=== PATIENT | female | born 1940 | race Caucasian/White ===

== ENCOUNTER 2023-04-30 11:27 | Day surgery (SDC) | payer MEDICARE, SELFPAY ==
[2023-04-22 08:54] VITALS: BMI 28.1
[2023-04-30] VITALS (11 sets, daily range): BP systolic 97–119; BP diastolic 44–63; PULSE 15–85; RESP 10–16; TEMP 36.1–37.5; O2SAT 93–96; BMI 28.1
--- NOTE | 2023-04-30 | DI.RAD.S_ITS ---
PROCEDURE: XR HIP W PEL IF DONE RT 2V INDICATIONS: RIGHT ANTERIOR HIP TECHNIQUE: 2 view(s) of the hip acquired. COMPARISON: [facility], ABHISHEK, XR HIP W PEL IF DONE RT 2V, 04/30/2023, 16:43. FINDINGS: Bones: Patient is status post right hip arthroplasty, with hardware components in expected positions. The hip joint appears congruent. The visualized bony structures appear intact. Soft tissues: Overlying postoperative changes are noted. No suspicious soft tissue densities. IMPRESSION: Expected post-operative appearance of a hip arthroplasty. Dictated by: Dafne Palmer M.D. on 04/30/2023 at 20:27 Approved by: Dafne Palmer M.D. on 04/30/2023 at 20:28
--- NOTE | 2023-04-30 06:00 | DI.RAD.S_ITS ---
PROCEDURE: XR HIP W PEL IF DONE RT 2V INDICATIONS: VERONICA TECHNIQUE: Fluoroscopic images obtained for a right total hip arthroplasty placement. COMPARISON: None. FINDINGS: Fluoroscopic images demonstrate normal alignment of a right total hip arthroplasty. IMPRESSION: Fluoroscopic guidance utilized for a right hip arthroplasty. Dictated by: Emilio Ann M.D. on 05/01/2023 at 0:25 Approved by: Emilio Ann M.D. on 05/01/2023 at 0:26
[2023-04-30] MEDS: CELECOXIB 200 MG CAPSULE PO (12:20)
[2023-04-30] MEDS: ACETAMINOPHEN 325 MG TABLET 975 MG PO (12:20)
[2023-04-30] MEDS: LACTATED RINGERS 1,000 ML 42 ML IV (12:20)
[2023-04-30] MEDS: VANCOMYCIN 1,000 MG/200 ML PIGGYBACK 200 MG IV (13:42)
--- NOTE | 2023-04-30 15:05 | PM.OP.1 ---
Operative Date/Time/Diagnoses Date of procedure: 04/30/23 Time of procedure: 15:20 Pre-op diagnosis: right hip OA Post-op diagnosis: same Procedure & Clinicians Procedure: Right total hip arthroplasty anterior approach Same procedure as scheduled: Yes Indications: The patient has had progressively worsening right hip pain with radiographic changes consistent with arthritis. Non-operative management has failed and the patient has requested total hip replacement. The risks, benefits and alternatives to surgery were discussed with the patient prior to proceeding. Risks discussed included, but were not limited to, failure to relieve pain, leg length discrepancy, dislocation, stiffness, infection, nerve damage, deep venous thrombosis, pulmonary embolism, stroke, coma, heart attack, permanent paralysis and , as well as the potential need for eventual revision of the prosthetic. Surgeon: Betty Badillo Child Welfare Specialist: Joan Navas Anesthesia Type: General Operative Notes Findings: Severe right hip osteoarthritis, substantial hip flexion contracture, soft bone, adequate stability Closure Type: primary Specimen(s): none sent Prosthetic devices, grafts, tissues, transplants, or devices: Badillo and nephew R3 size 48 cup, neutral poly liner, one 6.5 mm screw, size 2 polar stem, 32 x -3 CoCr head Estimated Blood Loss (mL): 250 Blood products transfused: none Procedure in detail: The patient was brought to the operating room. Patient was carefully positioned in the supine position. Time-out was performed and antibiotics were given. Anesthesia was induced. She was positioned in the on the table in order to allow hyperextension of the hip. The right lower extremity was prepped and draped in a standard sterile fashion. An anterior right hip incision was made 1 fingerbreadth lateral to the anterior superior iliac spine and extended distally towards the greater trochanter. Dissection was carried out through skin and subcutaneous tissues. Superficial hemostasis was achieved. The fascia over the tensor fascia merrill was defined and incised with a knife. Two Allis clamps were used to grasp the fascia. Tensor fascia merrill was retracted laterally. A gelpi retractor was placed. Dissection was carried out down along the neck. The circumflex vessels were carefully identified and cauterized with the Aqua Mantis. A PA was used intraoperatively and was essential for intraoperative retraction and safe implantation of the components. They were also helpful in assisting visualization to improve hemostasis. There was good visualization of the femoral neck. A Cobra was placed superior to the neck and the gluteus fibers were carefully stripped from that superior aspect of the capsule. A 2nd retractor was placed along the inferior aspect of the neck. The rectus insertion along the capsule was partially released. A 3rd retractor that was then gently placed over the rim of the acetabulum under the rectus. Capsule was carefully incised and released from the intertrochanteric line circumferentially superior to the mid sagittal line and inferiorly to the mid sagittal line until the lesser trochanter was palpable. A tag stitch was placed both in the superior and inferior limb of the capsular insertion. Along the acetabulum capsule was also released up to the mid sagittal 12:00 position. A portion of the labrum was resected. A saw was used to perform an osteotomy at the level of the intertrochanteric line and the junction of the superior femoral neck leaving approximately 1 finger breath of residual inferior neck above the lesser trochanter. A 2nd cut was made along the femoral neck at the base of the head and a napkin ring of neck was removed. Corkscrew was placed in the femoral head and the head was removed without difficulty. Retractors were then repositioned around the acetabulum. Residual labrum was resected and additional osteophytes were removed. She had a significant hip flexion contracture and substantial adhesions and fairly severe scarring throughout her capsule. There was significant shortening of the right femur. Mobilization of the femur and acetabulum both were quite difficult secondary to severe scarring and contracture. Specifically released substantial amount of the anterior capsule in order to free and help minimize the hip preoperative hip flexion contracture. A reamer that was 4 mm below the templated size was placed by hand in the acetabulum and it was reamed to centralize the acetabulum. It was then reamed up to 2 under the templated size and fluoroscopy was brought in to confirm the position of the reaming and depth of reaming. I reamed 1 under the anticipated size. A trial cup was placed and noted that it was appropriately sized and fluoroscopy confirmed position and depth. The component was open and inserted without difficulty fluoroscopic imaging was used to confirm that the cup had been adequately seated and was well positioned. It was further stabilized with 2 screws. She had a fairly soft acetabulum but adequate stability was achieved. Neutral poly liner was placed. The cup was tested and noted to be stable. Attention was then directed to the femur. The femur was gently hyperextended additional capsular release was performed as needed in order to allow adequate visualization of the proximal femur with elevation of the femur. Patient was placed in a hyperextended slightly adducted position with maximum external rotation. Box osteotome was used to check for any residual neck as well as sclerotic bone along the trochanter. [place] pepper was placed in the femur. Additional broaching was performed. Canal finder was used to determine the alignment of the canal and position. Size 1 broach was placed. The canal was then appropriately broached up to the templated size as long as there was adequate stability of the broach and serial advancement of the broach without excessive impingement. Specific attention was directed at avoiding varus attempting to direct the distal aspect of the broach more anteriorly and avoiding excessive anteversion. Initial trial reduction was noted that she was too tight. I then brought her back up tamped down the femoral component additional 3-4 mm and trimmed additional neck. It is a little too tight for calcar reaming so I did an additional 3 mm neck osteotomy. I also went up 1 size on the broach after looking at the initial films. Trial reduction showed acceptable range of motion, good stability, no posterior impingement, buddhism of leg length and appropriate lateral shuck. I also hyperflexed the hip and checked that there was no impingement anteriorly and there was good stability with flexion, adduction and internal rotation. Marcaine and Exparel were injected. The stem was placed without difficulty. Repeat trial reduction and x-ray showed acceptable overall position, length, and no evidence of the femoral fracture. Final head was placed. Wound was meticulously irrigated with normal saline. The hip was reduced and additional Exparel and Marcaine were injected. The capsule was closed with interrupted nonabsorbable sutures. The fascia of the tensor was closed with interrupted and running Vicryl. No drain was placed. Any tensor fascia merrill muscle that appeared to be contused or injured which was a minimal amount was carefully resected. Capsule around the tensor was injected with Exparel and Marcaine. The skin was closed with barbed stitches for the subcutaneous tissue and skin. We also used a few staplers and used used surgical glue. The wound was dressed sterilely. Brief Betadine soak was also used and was meticulously irrigated with normal saline. Patient was transferred to recovery room in satisfactory condition. Complications: none Post-operative Condition: stable Disposition: Acute Care Plan for aftercare: The patient will be maintained on a standard total hip replacement protocol with weight bearing as tolerated and anterior hip precautions. The patient will receive Aspirin and sequential compression devices for DVT prophylaxis. The patient will be discharged home when safe for the home environment.
[2023-04-30] MEDS: CEFAZOLIN 2 GM/100 ML PREMIX 100 ML IV ×2 (15:30→21:12)
[2023-04-30] MEDS: TRANEXAMIC ACID 1,000 MG VIAL 1000 MG INJ (15:30)
--- NOTE | 2023-04-30 15:55 | SUR.OPER ---
Patient supine on padded [place] table, left arm on padded arm board at <90, right arm padded and secured with tape across patient's chest, both legs secured in padded traction boots and positioned per surgeon, padded post at patient's groin, pressure points checked and padded.
[2023-04-30] MEDS: BUPIVACAINE 0.25% (PF) 60 ML, EPINEPHrine 0.3 MG INJ (16:10)
[2023-04-30] MEDS: BUPIVACAINE LIPOSOME 266 MG/20 ML VIAL INJ (16:11)
[2023-04-30] MEDS: LACTATED RINGERS 1,000 ML 100 ML IV (20:04)
[2023-04-30] MEDS: DOCUSATE 100 MG CAPSULE PO (21:14)
[2023-04-30] MEDS: METFORMIN HCL 500 MG TABLET PO (21:14)
[2023-04-30] MEDS: IBUPROFEN 400 MG TABLET PO (21:14)
[2023-04-30] MEDS: ACETAMINOPHEN 325 MG TABLET 650 MG PO (21:16)
[2023-04-30] MEDS: ASPIRIN EC 81 MG TABLET PO (21:16)
[2023-04-30] MEDS: ATORVASTATIN 20 MG TABLET PO (21:16)
[2023-05-01] VITALS: BP 109/61; PULSE 78; RESP 16; TEMP 36; O2SAT 92
[2023-05-01 04:00] VITALS: BP 92/43; PULSE 78; RESP 17; TEMP 36.2; O2SAT 92
[2023-05-01 06:15] LABS: Hematocrit 26.4 % (36-46); Hemoglobin 9.1 g/dL (12.0-16.0)
[2023-05-01] MEDS: PANTOPRAZOLE DR 20 MG TABLET PO (07:00)
[2023-05-01] MEDS: IBUPROFEN 400 MG TABLET PO ×2 (07:02→12:44)
[2023-05-01] MEDS: ACETAMINOPHEN 325 MG TABLET 650 MG PO ×2 (07:02→12:43)
[2023-05-01] MEDS: CEFAZOLIN 2 GM/100 ML PREMIX 100 ML IV (07:02)
--- NOTE | 2023-05-01 07:31 | P.DS_ITS ---
History of Present Illness History of Present Illness Chief complaint: OPB Narrative: Lupe is a pleasant 83 year old female who is POD #1 s/p right total hip arthroplasty anterior approach by Dr. Badillo. She states overall she is feeling well. Mild pain only. Has not gotten up out of bed to pee or walk yet. Nurse states patient has been asleep for most of her hospital stay so far. Patient normally lives alone but plans on staying with her sister after d/c from the hospital so she has 24 hour support during the immediate post-op period. Sister has prepped the house for patient to stay, no rugs, grab bars, walker, etc. Denies fever, chills, chest pain, SOB, nausea, vomiting. Operative Date/Time/Diagnoses Date of procedure: 04/30/23 Time of procedure: 15:20 Pre-op diagnosis: right hip OA Post-op diagnosis: same Procedure & Clinicians Procedure: Right total hip arthroplasty anterior approach Same procedure as scheduled: Yes Indications: The patient has had progressively worsening right hip pain with radiographic changes consistent with arthritis. Non-operative management has failed and the patient has requested total hip replacement. The risks, benefits and alternatives to surgery were discussed with the patient prior to proceeding. Risks discussed included, but were not limited to, failure to relieve pain, leg length discrepancy, dislocation, stiffness, infection, nerve damage, deep venous thrombosis, pulmonary embolism, stroke, coma, heart attack, permanent paralysis and , as well as the potential need for eventual revision of the prosthetic. Surgeon: Betty Badillo Stop Attacher: Joan Navas Anesthesia Type: General Discharge Providers Provider Discharge Date: 05/01/23 Primary care physician: Leydi Guaman PA-C Consults: 04/30/23 06:00 Consult to Anesthesiology Routine Comment: Consulting Provider: Anesthesiologist Reason for consultation: Regional block for post operative pain control 04/30/23 19:32 Consult to Discharge Planning Routine Comment: Consult to Occupational Therapy Evaluate & Treat Comment: Physician Instructions: Evaluate and treat Consult to Physical Therapy Evaluate & Treat Comment: Physician Instructions: post op VERONICA protocol Discharge provider: Joan Navas PA-C Summary Hospital Course Discharge Diagnosis: Right hip OA s/p Right total hip arthroplasty anterior approach Hospital Course: Hospital course complicated by lack of mobility at this time, will work with PT prior to d/c Exam Vital Signs (past 8 hours): - 05/01/23 00:00 05/01/23 04:00 Temperature 96.8 F L 97.1 F L Pulse Rate 78 78 Respiratory Rate 16 17 Blood Pressure 109/61 92/43 L Pulse Oximetry 92 92 Oxygen Flow Rate 2 2 Oxygen Delivery Method Room Air Oxygen Flow Rate 2 Const General: cooperative, healthy appearing and comfortable Resp Effort & Inspection: normal respiratory effort and able to speak in complete sentences Skin Other: Clean and dry Aquacel dressing intact to patients right anterior hip. Small bruise distal to the incision site. Neuro General: patient oriented x3 Extrem Other: 5/5 strength with DF, PF, EHL. Spencer flexion and extension with mild pain. Sensation intact to all toes Calves soft and non-tender. Objective Labs 05/01/23 05:10 Labs: Laboratory Results - last 24 hr 05/01/23 05:10 Hgb 9.1 L Hct 26.4 L PFSH Medical History (Updated 04/22/23 @ 09:13 by Orly Hernandez RN) Osteoarthritis Diabetes Incontinence GERD (gastroesophageal reflux disease) Esophageal dilatation HLD (hyperlipidemia) HTN (hypertension) Surgical History (Updated 04/22/23 @ 09:13 by Orly Hernandez RN) Hx of appendectomy Hx of bilateral cataract extraction Social History household members: none Smoking Status: Former smoker alcohol intake: current Discharge Assessment & Plan Assessment and Plan Assessment: Right hip OA s/p Right total hip arthroplasty anterior approach Plan of Treatment: Okay to d/c to home today pending PT evaluation and patient being able to urinate on her own. The patient will be maintained on a standard total hip replacement protocol with weight bearing as tolerated and anterior hip precautions. Continue multimodal pain management, continue ASA BID for DVT prophylaxis Follow up at [facility] in 2 weeks for post-op appointment. Keep dressing intact until 2 weeks appointment. keep dressing clean and dry, no soaking the incision site in pools or tubs. NO topical ointments or creams to the incision site. Discharge Plan Discharge Plan Patient Disposition: Home Provider Discharge Comment: Follow up at [facility] in 2 weeks Discharge orders & Medications Discharge Orders: Discharge (Order); Ordered 05/01/23 Ordered By: Joan Navas Prescriptions: New acetaminophen 325 mg Tablet 650 mg PO Q6H Qty: 90 0RF aspirin 81 mg Tablet,Delayed Release (Dr/Ec) 81 mg PO BID Qty: 90 0RF docusate sodium 100 mg Capsule 100 mg PO BID PRN (Reason: constipation) Qty: 30 0RF oxycodone 5 mg Tablet 5 mg PO Q4-6H PRN (Reason: Pain, Moderate (4-6)) Qty: 30 0RF ondansetron 4 mg Tablet,Disintegrating 4 mg PO Q4HR PRN (Reason: Nausea) Qty: 30 0RF Continued metformin 500 mg Tablet 500 mg PO BID lisinopril 20 mg Tablet 20 mg PO DAILY acetaminophen 500 mg Tablet 500 - 1,500 mg PO DAILY PRN (Reason: Pain) simvastatin 40 mg Tablet 40 mg PO BEDTIME omeprazole 20 mg Capsule,Delayed Release(Dr/Ec) 20 mg PO DAILY hydrochlorothiazide 25 mg Tablet 25 mg PO DAILY Follow up/Referrals: Leydi Guaman PA-C [Primary Care Provider] - Diet/Activity/Treatments Diet: Diet as Tolerated Activity: Weight bearing as tolerated. Follow anterior hip precautions. Cold/Heat Therapy: Ice to the hip as needed for pain control Skin/Wound/Dressing Care Report to your healthcare provider any signs of infection, such as:: chills, fever, night sweats, unusual drainage and unusual redness Dressing: Keep dressing intact until 2 week post-op appointment. Keep dressing clean and dry, if dressing becomes saturated okay to remove and replace with clean and dry gauze and/or call out office. NO soaking the incision site in pools or tubs. No topical ointments or creams to the incision site. Visit Report/Discharge Packet Instructions: DI for Hip Replacement, DI for Constipation, How to Prevent Falls, DI for Prescription Opioid Use, How to Monitor Your Blood Pressure at Home Stand Alone Forms: Patient Portal/API Discharge Data Primary Care Provider: Leydi Guaman Attending Provider: Betty Badillo VTE Deep Vein Thrombosis/Pulmonary Embolism Present on Admission: No
[2023-05-01 08:00] VITALS: BP 105/55; PULSE 83; RESP 18; TEMP 36.6; O2SAT 93
[2023-05-01] MEDS: ONDANSETRON 4 MG/2 ML INJ IV ×2 (08:02→12:15)
[2023-05-01] MEDS: METFORMIN HCL 500 MG TABLET PO (08:45)
[2023-05-01] MEDS: DOCUSATE 100 MG CAPSULE PO (08:45)
[2023-05-01] MEDS: ASPIRIN EC 81 MG TABLET PO (08:46)
[2023-05-01] MEDS: OXYCODONE IR 5 MG TABLET PO ×2 (08:54→12:44)
--- NOTE | 2023-05-01 09:06 | CM.DANOTE ---
Initial DCP Assessment Visit Reviewed EMR and team rounds for pt's medical status and initial anticipated d/c needs. Met with pt at bedside to introduce self and role. Pt found to be sitting upright in bed eating her breakfast, alert/oriented and able to discuss d/c preferences. Pt states that her plan is to d/c today to her sister's house for the immediate post-op period until she can return home safely back to her independent living status. Sister will transport at d/c. Payor: Medicare Attending: Betty Badillo Pt is a 83 year-old F post-op day 1 from her R-hip total arthroplasty surgery. She has a hx of worsening R-hip pain, making it difficult to walk or climb up/down stairs. She uses a walker full-time for home mobility, and shares that once this hip surgery heals, she will plan to have her L-hip done as well. She shares that she has all of the home DME needed for post-op assistance, and her sister will provide for her care needs. Plan is to d/c today, f/u with Ortho in 2-weeks for post-op wound check, and OP PT. DCP will continue to follow for any further evolving needs. No d/c needs are identified at this time for further CM assistance. Discharge Planning/Care Management CM Discharge Assessment Start: 05/01/23 08:49 Freq: Status: Active Protocol: Document 05/01/23 08:49 DPL (Rec: 05/01/23 09:06 DPL [id number]) Discharge Planning Assessment Assigned Recreation Officer DEEPIKA Lynch Advance Directives? No History Provided By Patient,Medical Record Has Patient been admitted in last 30 No days? Prior Living Arrangements House Household Members none Comment Pt will d/c to her sister's house for her immediate post- op recovery. Type of transporation used prior to Drives own vehicle admit Independent with ADL's Yes Is patient alert and oriented? Yes DME Already Rented / Owned Bath Bench,Elevated Toilet Seat,FWW / Walker,Cane Patient/Family Preference OP PT Therapy Barriers to Discharge No Discharge Plan Home Community Services Physical Therapy Transportation Arrangement Family Referrals Initiated None needed Whiteboard Updated in Patient Room with Yes name and ext. # of Recreation Officer Review Status In Process Please Provide Date Initial DC 05/01/23 Assessment Was Performed Pre-Anesthesia Assessment Start: 04/22/23 08:54 Freq: Status: Complete Protocol: Document 04/22/23 08:54 [facility] (Rec: 04/22/23 09:29 [facility] [id number]) Pre-Anesthesia Assessment Patient Information Reviewed Via Phone Assessment Assessment Completed With Patient Diagnostic Results BMP/CMP,CBC,EKG Comment Outside EKG scanned, outside labs done per pt, not here Primary Care Provider DA Seen Specialist in Last 12 Months Yes Specialist Seen Orthopedist Primary Language Kyrgyz Manager Flight Operations Required No Height 152.4 cm Weight 65.317 kg Body Mass Index (BMI) 28.1 Hearing Ability Normal Visual Assist Magnifying Glass Dentition Type Full- Upper & Lower Barriers to Learning None Comment Pt denies Hx Anesthesia Reactions Yes: I wake up sooner than I should I think Hx Family Anesthesia Reaction No Hx Malignant Hyperthermia No Hx Blood Transfusions No Anesthesia Review Requested No Car Mechanic Helper No alcohol intake current alcohol intake frequency holidays/special occasions only Smoking Status Former smoker how long ago did patient quit smoking 1985 Substance Use Type does not use Pain Present Pain Reported Musculoskeletal Symptoms Abnormal Gait,Difficulty Walking,Joint Pain History of Falling (Recent or History of Yes ) Patient is completely paralyzed or No completely immobile Prosthesis or Orthotic Device Front Wheel Walker Mental Status Oriented to own ability Is patient on oxygen? No Does patient have WORKMAN/SOB No Hx Sleep Apnea No Currently Taking a Beta Eran No Hx Chest Pain No Hx SOB No Hx Syncope or Dizziness No Anti-Coagulant Therapy No Has a Heel Caser No Cardiac Testing No Hx Pacemaker/ICD No Pacemaker Rep Required? No Cardiac Clearance Received Not Applicable Diet Type At Home Regular Dysphagia No Gastrointestinal Symptoms Reflux Bladder Pattern Incontinent Urinary Catheter Present No Hx Urinary Self Catheterization No Diabetes No Patient No Lactating No Hx Drug Resistant Organism No Presence of External or Internal Medical Yes: Sonny eye IOLs Devices Received a COVID vaccine? Yes Received all doses? Yes Marital Status / Lives With none Current Living Arrangements House Number of Floors (Floors) One Floor Support System Sibling(s) Patient Discharge Plan Description Other Comment Pt will DC to sister's house for care after surgery Additional comment Pt advised overnight length of stay per surgeon Feels Safe in Current Environment Yes Been Physically Hurt or Threatened By a No Person in Current Environment Do you have thoughts of harming yourself None or others? Are you currently considering suicide? No Do you have a plan to hurt yourself or No Plan others? Do You Have Any Spiritual Beliefs That No May Affect Your HC Choices? Do You Have Any Cultural Practices That No May Affect Your HC Choices? Comment Mandaen Who Can We Speak to About Patient's Care Family, friends Identifying Code for Release of Patient Declines to issue Information Health Care Proxy/Next of Kin Cassie (sister) Health Care Proxy Emergency Contact Name Cassie (sister) Emergency Contact Advance Directives? No Power of Combine Operator No PAC Instructions Do not shave/clip surgical site,Durable medical equipment ,Medications to take/avoid, Nasal antibiotic,No ETOH/ petroleum product on skin DOS, NPO,Post-op transportation, Sturdy shoes/comfortable clothes,Do not bring valuables and remove jewelry
--- NOTE | 2023-05-01 09:25 | PT.IIE ---
Current Diagnoses Unilateral primary osteoarthritis, right hip (04/30/23) Surgery Performed Operation Date: 04/30/23 13:45 Actual Procedures p Total Hip Arthroplasty/Anterior(Right) - Betty Badillo MD Surgical History (Last Updated 04/22/23 @ 09:13 by Orly Hernandez, RN) Hx of appendectomy Hx of bilateral cataract extraction Medical History (Last Updated 04/22/23 @ 09:13 by Orly Hernandez, RN) Diabetes Esophageal dilatation GERD (gastroesophageal reflux disease) HLD (hyperlipidemia) HTN (hypertension) Incontinence Osteoarthritis Physical Therapy Inpatient Evaluation/Re-Eval M1 PT/OT-IP Prior Functional Status Start: 05/01/23 12:18 Freq: NEEDED Status: Active Protocol: Document 05/01/23 09:25 AB (Rec: 05/01/23 12:42 AB [id number]) Medical Review Prior Functional Status Medical History Reviewed Yes Communication able to make needs known; with slight confusion Mobility and Gait pt stated that she was modified independent with all mobilities and ambulation using a 4WW Social History Household Members none Living Arrangements House Number of Stairs To Enter/Railing? pt plans to go to her sister's house : home set up info is regarding pt's sister's house 3 steps wide bilateral rails to enter Home Environment Standard Height Toilet,Walk in Shower,Tub/Shower Home Equipment Front Wheel Walker,Four Wheel Walker,Manual Wheelchair, Raised Toilet Seat Without Armrests,Shower Seat without Backrest,Hand Held Shower,Grab Bars In Shower Additional Social History Comment pt gets in/out on L side of the bed M2 PT-IP Current Condition Start: 05/01/23 12:18 Freq: NEEDED Status: Active Protocol: Document 05/01/23 09:25 AB (Rec: 05/01/23 12:42 AB [id number]) Physical Therapy Current Condition Current Condition Evaluation Date 05/01/23 Treatment Diagnosis s/p R VERONICA anterior; difficulty in walking Onset Date 04/30/23 M3 PT-IP Subjective Start: 05/01/23 12:18 Freq: NEEDED Status: Active Protocol: Document 05/01/23 09:25 AB (Rec: 05/01/23 12:42 AB [id number]) Subjective Physical Therapy Visit Type Type Initial Evaluation Visit Start Time 09:25 Visit Stop Time 11:20 Notes pt seen for split visits: 925 am to 947am and 1005 am to 1120 Number of PRODUCT SCIENTIST Visits 0 Physical Therapy Visit Comments Patient Comments agreeable to do PT Therapy Pain Assessment Pain When Pain Assessed At Rest Pain Present Pain Present Pain Reported Location Right Hip Scale Used pain scale not stated Pain Behaviors Guarding Pain Management Techniques Modification of Treatment,Re- positioning,Timing of Activity with Medications M4 PT-IP Mobility and Gait Start: 05/01/23 12:18 Freq: NEEDED Status: Active Protocol: Document 05/01/23 09:25 AB (Rec: 05/01/23 12:42 AB [id number]) PT-Bed Mobility Assessment Supine to Sit Supine to Sit Maximum Assistance,1 Person Assistance PT-Transfer Assessment Sit to and From Stand Sit to and from Stand Minimal Assistance,Moderate Assistance,1 Person Assistance ,Use of Upper Extremities Equipment Transfer Assistive Device Gait Belt,Front Wheeled Walker Orthotic/Prosthetic Devices or Brace: No Transfers Transfer Destination Chair Transfer Technique ambulated Transfer Ability Level of Assist Minimal Assistance,Moderate Assistance,1 Person Assistance ,Use of Upper Extremities Comments Mobility Comments pt supine in bed. obtained PLOF and home set up. educated pt regarding anterior hip precautions on RLE. post -op folder provided to pt. checked back on pt after rounds meeting. reviewed post op folder contents with pt and precautions. pt requires cues to recall. pt's sister arrived and educated regarding pt's hip precautions. BP: 102/48. pt completed supine to sit max A and max cues log roll. pt has chronic back issues. pt's sister stated that if needed, pt can use her lift chair to sleep on. pt completed sit to stand from EOB mod A and cues and ambulated in room using FWW mod A and cues for precautions . pt presents with stooped posture and increases with more activity, NBOS and decrease LE clearance off the floor. pt sat on the chair. caregiver training conducted. educated sister on how to use safety belt and how to assist pt. pt's sister was able to put safety belt on and assisted pt with sit to stand ambulation in room ~ 12 ft. pt sat on EOB and rested. pt with decrease activity tolerance requiring frequent and extended rest breaks in between activities. pt's sister stated that pt has to step up a stool to get into the car. educated pt on how to step up/down step stool to get into the car. pt agreed to do stairs. sister assisted pt with si to stand from EOB min A and ambulated towards the stairs using FWW ~ 30 ft min to mod A and cues. assisted pt the rest of the way to the stairs with a w/c. stair climbing training. educated pt on how to do stairs using R rail and showed sister on how to assist pt with stair climbing. pt completed up/down step holding on to R rail ascending with B hands mod A and sister assisting. pt with slight confusion and started to sit on FWW after completing stairs and cued to stand up straight and w/c positioned close to pt to sit. assisted pt back to the room. pt ambulated from w/c to chair ~ 15 ft using FWW min to mod A and cues. positioned pt on the chair. call light and table placed within reach. Further training set up at 1 pm today. also informed pt and sister regarding HHPT recommendation. Gait Assessment Gait Gait Assistance Required: Minimum Assistance,Moderate Assistance Distance (Feet) 30 Able to Maintain Weight Bearing Status Yes During Gait Assistive Devices Assistive Device Gait Belt,Front Wheeled Walker Orthotic/Prosthetic Devices or Brace: No Gait Deviations General Gait Pattern Antalgic,Decreased Feet Clearance,Flexed Trunk,Narrow Based Gait,Step-to Gait Factors Limiting Gait Function Factors Limiting Gait Function Decreased Activity Tolerance, Decreased Strength,Difficulty Following Directions,Limited Range of Motion,Pain,Poor Balance,Poor Safety Awareness Stair Climbing Assessment Evaluation Level of Assist On Stairs Moderate Assistance Devices Stair Climbing Assistive Devices Right Railing Technique/Endurance Stair Climbing Direction Ascend and Descend Stair Climbing Technique Step to Step Number of Steps Climbed 3 Query Text: Stair Climbing Set # Repetitions (reps) 1 PT-Balance Assessment Sitting Balance and Reactions Static Sitting Balance Ability Good Dynamic Sitting Balance Ability Fair Standing Balance and Reactions Static Standing Balance Ability Fair Dynamic Standing Balance Ability Poor Device Used FWW M5 PT-IP Objective Assessments Start: 05/01/23 12:18 Freq: NEEDED Status: Active Protocol: Document 05/01/23 09:25 AB (Rec: 05/01/23 12:42 AB [id number]) Orientation Orientation/Cognition Level of Alertness Alert Orientation Name,Place,Situation Language Function Ability Hard of Hearing Safety Awareness Decreased Safety Awareness Memory Description Short Term Impaired Comments with slight confusion Gross Range of Motion Lower Extremity ROM Assessment Within Functional Limits Strength Lower Extremity Strength Assessment Right Impaired Hip 3+/5 Knee 4-/5 Sensation Assessment Sensation Gross Sensation WNL Muscle Tone Muscle Tone WNL Yes M6 PT-IP Treatment Start: 05/01/23 12:18 Freq: NEEDED Status: Active Protocol: Document 05/01/23 09:25 AB (Rec: 05/01/23 12:42 AB [id number]) Physical Therapy Treatment Education Education Provided Precautions,Weight Bearing Status,Post-Op Packet,Safety M7 PT-IP Assessment and Plan Start: 05/01/23 12:18 Freq: NEEDED Status: Active Protocol: Document 05/01/23 09:25 AB (Rec: 05/01/23 12:42 AB [id number]) PT Summary Assessment and Plan Potential Rehabilitation Potential Fair Status of Condition at Evaluation Evolving Summary Impairments Pain,ROM,Strength,Balance, Coordination,Sensation,Tone, Cognition,Bed Mobility, Transfers,Gait,Activity Tolerance Assessment Summary pt is an 83 y/o F s/p R VERONICA anterior approach POD 1. pt has R hip anterior precautions and is WBAT. pt requiring min to mod A with mobility using FWW but has decrease activity tolerance requiring increase and frequent rest breaks in between tasks and influencing level of assistance needed. Caregiver training conducted but further training is needed. caregiver training set up for this afternoon a 1 pm. will continue to assess progress. pt also will require HHPT at this time. Goals Bed Mobility Goal Independent Transfer Goal Independent,Front Wheeled Walker Gait Goal Independent,Front Wheel Walker Gait Distance 100 Other Goals improve transfers and ambulation usign LRAD 150 ft mod I up/down 3 steps 1 rail mod I Days to Meet Goals 5 Frequency of Treatment Frequency Of Treatment Twice a Day Treatment Plan Physical Therapy Treatment Plan Bed Mobility Training,Transfer Training,Gait Training, Therapeutic Exercise,Balance Retraining,Post Op Education, Discharge Planning,Hot or Cold Pack,Neuromuscular Re-ed, Coordination Retraining,Manual Therapy Precautions Anterior Hip Precautions No Hip Extension,No Hip External Rotation Weight Bearing Status Weight Bearing Status Weight Bear as Tolerated Allowed Weight Bearing Amount (enter % RLE WBAT or #) (%) Recommendations To Nursing Amount of Assist Needed 1 Person Assist Discharge Recommendations PT Discharge Recommendations Home with 20/10 Assist Available,Home Health Transportation Needs at Discharge Private Vehicle,Wheelchair/ Cabulance
--- NOTE | 2023-05-01 12:20 | OT.IP.EVAL ---
Current Diagnoses Unilateral primary osteoarthritis, right hip (04/30/23) Surgery Performed Operation Date: 04/30/23 13:45 Actual Procedures p Total Hip Arthroplasty/Anterior(Right) - Betty Badillo MD Past Medical History (Last Updated 04/22/23 @ 09:13 by Orly Hernandez, RN) Diabetes Esophageal dilatation GERD (gastroesophageal reflux disease) HLD (hyperlipidemia) HTN (hypertension) Incontinence Osteoarthritis Surgical History (Last Updated 04/22/23 @ 09:13 by Orly Hernandez RN) Hx of appendectomy Hx of bilateral cataract extraction Occupational Therapy Inpatient Evaluation/Re-Eval M1 PT/OT-IP Prior Functional Status Start: 05/01/23 12:56 Freq: NEEDED Status: Active Protocol: Document 05/01/23 11:45 [facility] (Rec: 05/01/23 13:11 [facility] [id number]) Medical Review Prior Functional Status Medical History Reviewed Yes Communication able to make needs known; with slight confusion Mobility and Gait pt stated that she was modified independent with all mobilities and ambulation using a 4WW Activities of Daily Living and IADL's Pt states uses LB dressing equipment for needs due to her bad back. Social History Household Members none Living Arrangements House Number of Stairs To Enter/Railing? pt plans to go to her sister's house : home set up info is regarding pt's sister's house 3 steps wide bilateral rails to enter Home Environment Standard Height Toilet,Walk in Shower,Tub/Shower Home Equipment Front Wheel Walker,Four Wheel Walker,Manual Wheelchair, Raised Toilet Seat Without Armrests,Shower Seat without Backrest,Hand Held Shower, Auto Body Repairer,Sock Aid,Grab Bars In Shower Additional Social History Comment pt gets in/out on L side of the bed M2 OT-IP Current Condition Start: 05/01/23 12:56 Freq: Status: Active Protocol: Document 05/01/23 11:45 [facility] (Rec: 05/01/23 13:11 [facility] [id number]) Occupational Therapy Current Condition Current Condition Evaluation Date 05/01/23 Treatment Diagnosis S/P R VERONICA anterior approach Diagnosis Onset Date 04/30/23 Post Operative Precautions Anterior Hip Precautions No Hip Extension,No Hip External Rotation M3 OT- IP Subjective and Pain Start: 05/01/23 12:56 Freq: Status: Active Protocol: Document 05/01/23 11:45 [facility] (Rec: 05/01/23 13:11 [facility] [id number]) OT- Subjective Occupational Therapy Visit Type Type Initial Evaluation Visit Start Time 11:45 Visit Stop Time 12:20 Occupational Therapy Visit Comments Patient Comments Pt agreed to get up to use the bathroom. Patient/Caregiver Goals TO go home to her sister's house. OT Pain Assessment Pain When Pain Assessed At Rest Pain Present Pain Present Pain Reported Location Right Hip Intensity 4 M4 OT- IP ADL's Start: 05/01/23 12:56 Freq: Status: Active Protocol: Document 05/01/23 11:45 [facility] (Rec: 05/01/23 13:11 [facility] [id number]) OT [id number] Comments OT Self-Feeding Comments Not at meal time. OT ADL-Grooming General Evaluation Grooming Ability Minimal Assistance Comments OT Grooming Comments Pt states sister assisted with her hair and that she was able to wash her face earlier. OT ADL-Oral Care General Eval Oral Care Ability Moderate Assistance Comments Oral Care Comments Pt able to swish her mouth out with mouthwash due having emesis after use of the bathroom. Able to assist to rinse her dentures out for her . OT ADL-Dressing General Eval Lower Body Dressing Ability Moderate Assistance Areas Needing Assistance Underpants/Brief,Socks Assistive Devices Dressing Assistive Devices Auto Body Repairer,Sock Aid Comments OT Dressing Comments Assist to help get clothing over her feet. Educated best to sebastien RLE first and take it out last. OT ADL-Toileting General Evaluation Toileting Ability Minimal Assistance Areas Needing Assistance Manage Clothing Comments OT Toileting Comments Suggested best for pt to have a BSC next to her bed as pt has to get up every two hours to urinate. Suggested best for pt's sister to get up with her at night and continue to use pads and wet one. Educated pt to be mindful of her right hip positioning during ADL needs especially when wiping. OT ADL-Bathing Comments OT Bathing Comments Pt states to shower at home. Spoke of care for the dressing while showering. M5 OT- IP IADL's Start: 05/01/23 12:56 Freq: Status: Active Protocol: Document 05/01/23 11:45 [facility] (Rec: 05/01/23 13:11 [facility] [id number]) OT-Instrumental Activities of Daily Living Deficits IADL Deficits Identified Deficits Home Safety Awareness Awareness of Need for Assistance at Home Good Awareness Ability to Problem Solve Emergency Able to Problem Solve Situations Medication Management Medication Management Comments Pt's sister able to assist as needed. Money Management Money Management Comments Pt's sister to assist as needed. Meal Preparation Meal Preparation Caregiver Provides Assist Lodge Sales Associate Lodge Sales Associate Caregiver Provides Assist M6 OT- IP Functional Cognition Start: 05/01/23 12:56 Freq: Status: Active Protocol: Document 05/01/23 11:45 [facility] (Rec: 05/01/23 13:11 [facility] [id number]) Cognitive Factors Limiting Selfcare Function Cognitive Ability Level of Alertness Alert Patient Orientation Name,Age,Birthday,Month,Date, Year,Day of Week,Place, Situation Attention Span Ability Capable of Focused Attention, Capable of Sustained Attention Ability to Follow Commands Able to Follow One Step Commands Cognitive Comments Cognitive Assessment Comments Pt just completing PT and doing better to be able to recall and incorporate her hip precautions. Pt needing vc for FWW safety and to keep it closer to her. OT- Vision and Hearing OT- Hearing Assessment OT- Hearing Assessment WFL OT- Vision Assessment Visual Acuity Glasses For Reading Visual Attentiveness WFL Occular Pursuits WFL M7 OT- IP Mobility and Balance Start: 05/01/23 12:56 Freq: Status: Active Protocol: Document 05/01/23 11:45 [facility] (Rec: 05/01/23 13:11 [facility] [id number]) OT-Transfer Assessment Sit to and From Stand Sit to and from Stand Contact Guard Assistance, Minimal Assistance Transfers Transfer Ability Contact Guard Assistance Technique Transfer Destination Chair,Toilet Transfer Technique Stand Step Pivot Devices Transfer Assistive Devices Gait Belt,Front Wheeled Walker Comments Mobility Comments BP sitting 94/48 and after use of the bathroom 146/73 and had emesis, nursing notified. Pt needing ERMA to stand from lower surfaces. CGA for balance with FWW. OT- Balance Assessment Sitting Balance and Reactions Static Sitting Balance Ability Good Dynamic Sitting Balance Ability Fair Standing Balance and Reactions Static Standing Balance Ability Fair Dynamic Standing Balance Ability Poor M8 OT- IP Objective Assessments Start: 05/01/23 12:56 Freq: Status: Active Protocol: Document 05/01/23 11:45 [facility] (Rec: 05/01/23 13:11 [facility] [id number]) OT Gross Range of Motion Upper Extremity Range of Motion Assessment Bilaterally Impaired OT Strength Upper Extremity Strength Assessment Bilaterally Impaired M9 OT- IP Assessment and Plan Start: 05/01/23 12:56 Freq: Status: Active Protocol: Document 05/01/23 11:45 [facility] (Rec: 05/01/23 13:11 [facility] [id number]) OT Summary Assessment and Plan Potential Rehabilitation Potential Good Analytic Complexity at Evaluation Low Summary OT Impairments Pain,Strength,Balance, Functional Mobility,Dressing, Toileting,Bathing,Toilet Transfers,Shower Transfers, Activity Tolerance Progress Towards Goals Slow Progress due to Medical Issues,Slow Progress due to Activity Tolerance Assessment Summary Pt low complexity and main barriers are steps, and will need assist using LB dressing equipment for dressing needs and her sister to assist as well. Suggested pt get a BSC for home use. Pt to go home with her sister to assist and would benefit from home health . Goals Dressing Goal Independent Toileting Goal Independent Bathing Goal Standby Assistance Toilet Transfer Goal Independent Shower Transfer Goal Standby Assistance Days to Meet Goals 15 Frequency of Treatment Frequency Of Treatment Once a Day Treatment Plan OT Treatment Plan ADL Training,Functional Mobility,Patient/Family Education,Discharge Planning Discharge Recommendations OT Discharge Recommendations Home with 20/10 Assist Available,Home Health Home Equipment Needs BSC Transportation Needs at Discharge Private Vehicle
--- NOTE | 2023-05-01 13:00 | PT.IPTN ---
Current Diagnoses Unilateral primary osteoarthritis, right hip (04/30/23) Surgery Performed Operation Date: 04/30/23 13:45 Actual Procedures p Total Hip Arthroplasty/Anterior(Right) - Betty Badillo MD Physical Therapy Treatment Note M2 PT-IP Current Condition Start: 05/01/23 12:18 Freq: NEEDED Status: Active Protocol: Document 05/01/23 09:25 AB (Rec: 05/01/23 12:42 AB [id number]) Physical Therapy Current Condition Current Condition Evaluation Date 05/01/23 Treatment Diagnosis s/p R VEORNICA anterior; difficulty in walking Onset Date 04/30/23 M3 PT-IP Subjective Start: 05/01/23 12:18 Freq: NEEDED Status: Active Protocol: Document 05/01/23 14:27 ZF (Rec: 05/01/23 14:42 ZF [id number]) Subjective Physical Therapy Visit Type Type Treatment Note Visit Start Time 13:00 Visit Stop Time 13:50 Number of CERTIFICATION OFFICER Visits 1 Physical Therapy Visit Comments Patient Comments Pt agreeable to PT, Sister present for caregiver training . M4 PT-IP Mobility and Gait Start: 05/01/23 12:18 Freq: NEEDED Status: Active Protocol: Document 05/01/23 14:27 ZF (Rec: 05/01/23 14:42 ZF [id number]) PT-Bed Mobility Assessment Supine to Sit Supine to Sit Maximum Assistance,1 Person Assistance Sit to Supine Sit to Supine Maximum Assistance,1 Person Assistance PT-Transfer Assessment Sit to and From Stand Sit to and from Stand Minimal Assistance,Moderate Assistance,1 Person Assistance ,Use of Upper Extremities Equipment Transfer Assistive Device Gait Belt,Front Wheeled Walker Orthotic/Prosthetic Devices or Brace: No Transfers Transfer Destination Chair Transfer Technique Ambulated Transfer Ability Level of Assist Minimal Assistance,Moderate Assistance,1 Person Assistance ,Use of Upper Extremities Comments Mobility Comments Pt up in recliner when approached for therapy. Sister donns gait belt, assists w/ functional mobility. Therapist providing cues. STS from recliner, EOB, WC w/2ww, requires Min/ModA. SPT recliner>EOB requires Zane. Sitting EOB>Supine requires Max/ModA for LE management. Pt initially attempts log roll, but prefers to scoot and lift LEs. Supine>Sitting EOB requires MaxA. Pt and sister report that she can sleep in reclining Lift chair also. Pt amb 2x30' w/2ww, CGA. Pt dems forward trunk flexion, reduced step length. Pt occassionally rests forearms on 2ww. Pt asc /arnold x3 steps using R HR and stepping up sideways. VC for stepping wider to allow room for following foot both while asc/arnold. Sisters trained on how to gaurd for stair training. Gait Assessment Gait Gait Assistance Required: Contact Guard Assist Distance (Feet) 60 Able to Maintain Weight Bearing Status Yes During Gait Assistive Devices Assistive Device Gait Belt,Front Wheeled Walker Orthotic/Prosthetic Devices or Brace: No Gait Deviations General Gait Pattern Antalgic,Decreased Feet Clearance,Flexed Trunk,Narrow Based Gait,Step-to Gait Factors Limiting Gait Function Factors Limiting Gait Function Decreased Activity Tolerance, Decreased Strength,Difficulty Following Directions,Limited Range of Motion,Pain,Poor Balance,Poor Safety Awareness Stair Climbing Assessment Evaluation Level of Assist On Stairs Contact Guard Assistance, Minimal Assistance,1 Person Assistance Devices Stair Climbing Assistive Devices Right Railing Technique/Endurance Stair Climbing Direction Ascend and Descend Stair Climbing Technique Step to Step Number of Steps Climbed 3 Stair Climbing Set # Repetitions (reps) 1 PT-Balance Assessment Sitting Balance and Reactions Static Sitting Balance Ability Good Dynamic Sitting Balance Ability Fair Standing Balance and Reactions Static Standing Balance Ability Fair Dynamic Standing Balance Ability Poor Device Used FWW M5 PT-IP Objective Assessments Start: 05/01/23 12:18 Freq: NEEDED Status: Active Protocol: Document 05/01/23 09:25 AB (Rec: 05/01/23 12:42 AB [id number]) Orientation Orientation/Cognition Level of Alertness Alert Orientation Name,Place,Situation Language Function Ability Hard of Hearing Safety Awareness Decreased Safety Awareness Memory Description Short Term Impaired Comments with slight confusion Gross Range of Motion Lower Extremity ROM Assessment Within Functional Limits Strength Lower Extremity Strength Assessment Right Impaired Hip 3+/5 Knee 4-/5 Sensation Assessment Sensation Gross Sensation WNL Muscle Tone Muscle Tone WNL Yes M6 PT-IP Treatment Start: 05/01/23 12:18 Freq: NEEDED Status: Active Protocol: Document 05/01/23 14:27 ZF (Rec: 05/01/23 14:42 ZF [id number]) Physical Therapy Treatment Education Education Provided Precautions,Weight Bearing Status,Safety M7 PT-IP Assessment and Plan Start: 05/01/23 12:18 Freq: NEEDED Status: Active Protocol: Document 05/01/23 14:27 ABHILASH (Rec: 05/01/23 14:42 ZF [id number]) PT Summary Assessment and Plan Potential Rehabilitation Potential Fair Summary Impairments Pain,ROM,Strength,Balance, Coordination,Sensation,Tone, Cognition,Bed Mobility, Transfers,Gait,Activity Tolerance Assessment Summary Pt requires Zane for transfers , and MaxA for bed mobility. Pt has the option of sleeping in reclining lift chair at home. Pt asc/arnold x3 steps w/ Zane to facilitate safe DC to sister's home where she will be staying. Vitals monitored at beginning of session: 93/47 , 94%O2sat, 87BPM, and after mobility: 114/55, 96%O2sat, 88 BPM. Recommending DC Home w/ assist, services Goals Bed Mobility Goal Independent Transfer Goal Independent,Front Wheeled Walker Gait Goal Independent,Front Wheel Walker Gait Distance 100 Other Goals improve transfers and ambulation usign LRAD 150 ft mod I up/down 3 steps 1 rail mod I Days to Meet Goals 5 Frequency of Treatment Frequency Of Treatment Twice a Day Treatment Plan Physical Therapy Treatment Plan Bed Mobility Training,Transfer Training,Gait Training, Therapeutic Exercise,Balance Retraining,Post Op Education, Discharge Planning,Hot or Cold Pack,Neuromuscular Re-ed, Coordination Retraining,Manual Therapy Precautions Anterior Hip Precautions No Hip Extension,No Hip External Rotation Weight Bearing Status Weight Bearing Status Weight Bear as Tolerated Allowed Weight Bearing Amount (enter % RLE WBAT or #) (%) Recommendations To Nursing Amount of Assist Needed 1 Person Assist Discharge Recommendations PT Discharge Recommendations Home with 20/10 Assist Available,Home Health Transportation Needs at Discharge Private Vehicle,Wheelchair/ Cabulance
--- NOTE | 2023-05-01 13:43 | CM.DPC ---
DCP Cont. Met at bedside to discuss PT recommendation for pt to d/c to a SNF rehab. She declines, stating that the plan that her and her sister have is what she prefers to go with. She also declines Home Health as well. FISH WORM GROWER explained that if she should change her mind, that her PCP can order Home Health for her once she is OP. She expressed understanding and agrees to do so if she needs it. No further DCP needs identified at this time.
--- NOTE | 2023-05-01 14:18 | CM.DPC ---
DCP Update Per PT and pt/sister, ordered [facility] for d/c today: PT/OT/Bath Aide.
--- NOTE | 2023-05-01 15:47 | PC.NURSE ---
Discharge: Seen by RYDER x2, given d/c instructions from PA, wound care. PA was also made aware of pt's nausea x2 and she did vomit just before lunch 150mls. Received zofran x2. Pt still wanting to go home if she can. Second - BP down this am, range from 90's to 100's systolic. Lisinopril and hctz were held. She is sl dizzy. PA spoke with pt and her sister. They decided to go home. PA will send in an Rx for zofran, she is to call if the nausea is ongoing. Explained bp parameter (and pt given education sheet). Pt is staying with her sister and she does have a bp cuff at home. They are to monitor the bp twice a day and resume meds when at parameter. However if low bp lasts for longer then a couple of days she is to contact her MD. PT/OT have seen pt and she can d/c to home from their standpoint. Pt has voided w/out diff. She did tolerate a sm amt of bkft and lunch after receiving zofran. Then gave her pain medication. Pain has been in control. Discussed exparel. Reviewed d/c packet, questions answered. Sister was here for teaching. Sister also had caregiver training. Rx was esent. Pt had no concerns at the time of discharge. Pt d/c to sisters home via their auto.
== END 2023-05-01 15:15 | disposition home or self-care (01) ==
LOC: OR 11:34 → AC 11:34
PROVIDERS: PCP Physician Assistant; Referring Provider Orthopaedic Surgery; Visit Provider Orthopaedic Surgery
PROC: (CPT 27130; principal; 2023-04-30 13:45)
DX: M16.11 Unilateral primary osteoarthritis, right hip (principal); E11.9 Type 2 diabetes mellitus without complications; I10 Essential (primary) hypertension; K21.9 Gastro-esophageal reflux disease without esophagitis; E66.9 Obesity, unspecified; Z68.28 Body mass index [BMI] 28.0-28.9, adult; Z87.891 Personal history of nicotine dependence; Z79.84 Long term (current) use of oral hypoglycemic drugs
CPT/HCPCS: 27130; 36415; 73502; 76000; 82962; 85014; 85018; 97116; 97162; 97165; 97530; 97535; C1776; C9290; J0171; J0690; J1100; J1170; J2405; J2704; J3010

== ENCOUNTER 2023-09-01 06:06 | Inpatient (IN) | payer MEDICARE, SELFPAY ==
[2023-04-30 20:57] VITALS: BMI 28.1
[2023-08-25 09:33] VITALS: BMI 28.1
[2023-09-01] VITALS (12 sets, daily range): BP systolic 91–128; BP diastolic 47–69; PULSE 68–88; RESP 10–19; TEMP 35.8–37.1; O2SAT 95–100; BMI 27.4
--- NOTE | 2023-09-01 | DI.RAD.S_ITS ---
PROCEDURE: [id number] W PEL IF PERFORMED INDICATIONS: ANTERIOR LT HIP ORIF TECHNIQUE: AP pelvis with lateral view(s) of the left hip(s). COMPARISON: [facility], [place], XR HIP W PEL IF DONE RT 2V, 04/30/2023, 19:07. [facility], CR, XR HIP W PEL IF DONE RT 2V, 04/30/2023, 16:43. [facility] [place], [place], XR PELVIS WITH BILATERAL LATERAL HIPS, 01/20/2023, 15:47. [facility], CR, XR HIP W PEL IF DONE LT 2V, 09/01/2023, 10:57. FINDINGS: 4 intraoperative fluoroscopy images demonstrate total hip arthroplasty with placement of hip prosthesis. IMPRESSION: Left total hip arthroplasty with placement of hip prosthesis. Dictated by: Rajiv Garcia M.D. on 09/01/2023 at 17:14 Approved by: Rajiv Garcia M.D. on 09/01/2023 at 17:15
--- NOTE | 2023-09-01 06:00 | DI.RAD.S_ITS ---
PROCEDURE: XR HIP W PEL IF DONE LT 2V INDICATIONS: VERONICA TECHNIQUE: AP pelvis and lateral view of the hip acquired. COMPARISON: [facility], XR PELVIS WITH LATERAL HIP RIGHT, 05/13/2023, 15:18. FINDINGS: Bones: Patient is status post left hip arthroplasty, with hardware components in expected positions. Right hip arthroplasty postsurgical changes are stable compared to prior exam. The hip joint appears congruent. The visualized bony structures appear intact. Soft tissues: Overlying postoperative changes are noted. Calcified uterine fibroids. IMPRESSION: Expected post-operative appearance of a left hip arthroplasty. Dictated by: Yolis Bradley MD, PhD on 09/01/2023 at 11:09 Approved by: Yolis Bradley MD, PhD on 09/01/2023 at 11:10
[2023-09-01] MEDS: ACETAMINOPHEN 325 MG TABLET 975 MG PO (06:59)
[2023-09-01] MEDS: LACTATED RINGERS 1,000 ML 42 ML IV ×2 (06:59→11:13)
[2023-09-01] MEDS: CELECOXIB 200 MG CAPSULE PO (06:59)
[2023-09-01] MEDS: VANCOMYCIN 1,000 MG/200 ML PIGGYBACK 200 MG IV (07:00)
--- NOTE | 2023-09-01 07:53 | P.OP_ITS ---
Operative Date/Time/Diagnoses Date of procedure: 09/01/23 Time of procedure: 08:00 Pre-op diagnosis: Left hip OA Post-op diagnosis: same Procedure & Clinicians Procedure: Left total hip arthroplasty anterior approach Same procedure as scheduled: Yes Indications: The patient has had progressively worsening left hip pain with radiographic avendaño ges consistent with arthritis. Non-operative management has failed and the patient has requested total hip replacement. The risks, benefits and alternatives to surgery were discussed with the patient prior to proceeding. Risks discussed included, but were not limited to, failure to relieve pain, leg length discrepancy, dislocation, stiffness, infection, nerve damage, deep venous thrombosis, pulmonary embolism, stroke, coma, heart attack, permanent paralysis and , as well as the potential need for eventual revision of the prosthetic. Surgeon: Betty Badillo Regional Climate Change Analyst: Bola Baeza Anesthesia Type: General and Spinal Operative Notes Findings: Severe left hip OA, soft bone, adequate stability Closure Type: primary Specimen(s): none sent Prosthetic devices, grafts, tissues, transplants, or devices: Badillo [employer] Nephew R3 size 48 cup, neutral poly liner,one 6.5 mm screw, size 2 standard polar stem, 32 x -3 cobalt chrome Estimated Blood Loss (mL): 250 Blood products transfused: none Procedure in detail: The patient was brought to the operating room. Patient was carefully positioned in the supine position. Time-out was performed and antibiotics were given. Anesthesia was induced. She was positioned in the on the table in order to allow hyperextension of the hip. The left lower extremity was prepped and draped in a standard sterile fashion. An anterior left hip incision was made 1 fingerbreadth lateral to the anterior superior iliac spine and extended distally towards the greater trochanter. Dissection was carried out through skin and subcutaneous tissues. Superficial hemostasis was achieved. The fascia over the tensor fascia merrill was defined and incised with a knife. Two Allis clamps were used to grasp the fascia. Tensor fascia merrill was retracted laterally. A gelpi retractor was placed. Dissection was carried out down along the neck. The circumflex vessels were carefully identified and cauterized with the Aqua Mantis. A PA was used during the procedure and was essential for intraoperative retraction and safe implantation of the components. There was good visualization of the femoral neck. A Cobra was placed superior to the neck and the gluteus fibers were carefully stripped from that superior aspect of the capsule. A 2nd retractor was placed along the inferior aspect of the neck. The rectus insertion along the capsule was partially released. A 3rd retractor that was then gently placed over the rim of the acetabulum under the rectus. Capsule was carefully incised and released from the intertrochanteric line circumferentially superior to the mid sagittal line and inferiorly to the mid sagittal line until the lesser trochanter was palpable. A tag stitch was placed both in the superior and inferior limb of the capsular insertion. Along the acetabulum capsule was also released up to the mid sagittal 12:00 position. A portion of the labrum was resected. A saw was used to perform an osteotomy at the level of the intertrochanteric line and the junction of the superior femoral neck leaving approximately 1 finger breath of residual inferior neck above the lesser trochanter. A 2nd cut was made along the femoral neck at the base of the head and a napkin ring of neck was removed. Corkscrew was placed in the femoral head and the head was removed without difficulty. Retractors were then repositioned around the acetabulum. Residual labrum was resected and additional osteophytes were removed. A reamer that was 4 mm below the templated size was placed by hand in the acetabulum and it was reamed to centralize the acetabulum. It was then reamed up to 2 under the templated size and fluoroscopy was brought in to confirm the position of the reaming and depth of reaming. I reamed 1 under the anticipated size. A trial cup was placed and noted that it was appropriately sized and fluoroscopy confirmed position and depth. The component was open and inserted without difficulty fluoroscopic imaging was used to confirm that the cup had been adequately seated and was well positioned. Neutral poly liner was placed. The cup was tested and noted to be stable. Attention was then directed to the femur. The femur was gently hyperextended additional capsular release was performed as needed in order to allow adequate visualization of the proximal femur with elevation of the femur. Patient was placed in a hyperextended slightly adducted position with maximum external rotation. Box osteotome was used to check for any residual neck as well as sclerotic bone along the trochanter. [place] pepper was placed in the femur. Additional broaching was performed. Canal finder was used to determine the alignment of the canal and position. Size 1 broach was placed. The canal was then appropriately broached up to the templated size as long as there was adequate stability of the broach and serial advancement of the broach without excessive impingement. Specific attention was directed at avoiding varus attempting to direct the distal aspect of the broach more anteriorly and avoiding excessive anteversion. Trial reduction was initially too tight and it was felt that the neck cut was a little long. I downsized the broach by 1 tamped it down calcar planed and then placed the trial broach again. Trial red uction at that point Showed acceptable range of motion, good stability, no posterior impingement, samaritan of leg length and appropriate lateral shuck. I also hyperflexed the hip and checked that there was no impingement anteriorly and there was good stability with flexion, adduction and internal rotation. Marcaine and Exparel were injected. Left femoral neck and calcar was carefully checked as was removing the broach. There was a minor crack in the neck which did not extend below the level of the calcar or troch but it was felt that would be helpful to supplement it with an Arthrex cerclage TigerTape. The stem was placed without difficulty. Final reduction and x-ray showed acceptable overall position, length, and no evidence of the femoral fracture. Final head was placed. The TigerTape was passed after the hip had been reduced and was carefully tightened. It was passed in the region of the calcar along the residual neck. Wound was meticulously irrigated with normal saline. The hip was reduced and additional Exparel and Marcaine were injected. The capsule was closed with interrupted nonabsorbable sutures. The fascia of the tensor was closed with interrupted and running Vicryl. No drain was placed. Any tensor fascia merrill muscle that appeared to be contused or injured which was a minimal amount was carefully resected. Capsule around the tensor was injected with Exparel and Marcaine. The skin was closed with barbed stitches for the subcutaneous tissue and skin. We also used surgical glue. The wound was dressed sterilely. Brief Betadine soak was also used and was meticulously irrigated with normal saline. Patient was transferred to recovery room in satisfactory condition. Complications: none Post-operative Condition: stable Disposition: Acute Care Plan for aftercare: The patient will be maintained on a standard total hip replacement protocol with weight bearing as tolerated and anterior hip precautions. The patient will receive Aspirin and sequential compression devices for DVT prophylaxis. The patient will be discharged when safe. She does have multiple medical problems. She has a history of diabetes history of hypertension and problems with urinary incontinence. She has multiple joint osteoarthritic problems and has had a recent right total hip arthroplasty. She also had locking of her left knee recently. Her knee x-rays show significant left knee osteoarthritic change. I anticipate that she will likely require additional rehab and mobilization postoperatively and I anticipate that she will likely need a 3 night stay and probable discharge to rehab facility for short-term stay of 1-2 weeks. 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
--- NOTE | 2023-09-01 07:53 | PM.PREOP ---
Pre-operative Note Interval Note History & Physical reviewed/Exam performed by Physician: Yes Changes to H&P: No
[2023-09-01] MEDS: CEFAZOLIN 2 GM/100 ML PREMIX 100 ML IV ×2 (08:10→16:06)
[2023-09-01] MEDS: TRANEXAMIC ACID 1,000 MG VIAL 1000 MG INJ ×2 (08:20→10:23)
--- NOTE | 2023-09-01 08:29 | SUR.OPER ---
Patient supine on padded Romayor table, one arm on padded arm board at <90, other arm padded and secured with tape across patient's chest, both legs secured in padded traction boots and positioned per surgeon, padded post at patient's groin, pressure points checked and padded.
[2023-09-01] MEDS: BUPIVACAINE 0.25% (PF) 60 ML, EPINEPHrine 0.3 MG INJ (08:35)
[2023-09-01] MEDS: BUPIVACAINE LIPOSOME 266 MG/20 ML VIAL INJ (08:36)
[2023-09-01] MEDS: LACTATED RINGERS 1,000 ML 100 ML IV ×2 (11:45→22:05)
[2023-09-01] MEDS: ACETAMINOPHEN 325 MG TABLET 650 MG PO (12:33)
[2023-09-01] MEDS: IBUPROFEN 400 MG TABLET PO (12:34)
--- NOTE | 2023-09-01 14:58 | OT.IPNOTE ---
Pt groggy and complaining left leg spasm at this time. Pt not wanting to get up at this time and requesting use of bed [place]. To check on the pt tomorrow for OT olivia.
[2023-09-01] MEDS: METFORMIN HCL 500 MG TABLET PO (16:06)
--- NOTE | 2023-09-01 16:15 | PT.IIE ---
Current Diagnoses Unilateral primary osteoarthritis, left hip (09/01/23) Surgery Performed Operation Date: 09/01/23 07:45 Actual Procedures p Total Hip Arthroplasty/Anterior Approach(Left) - Betty Badillo MD Surgical History (Last Updated 08/25/23 @ 09:42 by Orly Hernandez, RN) History of total right hip replacement (04/30/23) Hx of appendectomy Hx of bilateral cataract extraction Medical History (Last Updated 08/25/23 @ 10:09 by Orly Hernandez RN) Arthritis Diabetes Esophageal dilatation GERD (gastroesophageal reflux disease) HLD (hyperlipidemia) HTN (hypertension) Incontinence Osteoarthritis Physical Therapy Inpatient Evaluation/Re-Eval M1 PT/OT-IP Prior Functional Status Start: 09/01/23 17:30 Freq: NEEDED Status: Active Protocol: Document 09/01/23 16:15 AB (Rec: 09/01/23 17:42 AB [id number]) Medical Review Prior Functional Status Medical History Reviewed Yes Communication able to make needs known Mobility and Gait pt stated that she was modified independent with all mobilities and ambulation using a 4WW Social History Household Members none Living Arrangements House Number of Floors (Floors) One Floor Number of Stairs To Enter/Railing? ramp to enter Home Environment Standard Height Toilet,Walk in Shower,Built-In Shower Seat, Ramp Home Equipment Front Wheel Walker,Four Wheel Walker,Raised Toilet Seat Without Armrests,Shower Seat with Backrest,Hand Held Shower ,Grab Bars In Shower M2 PT-IP Current Condition Start: 09/01/23 17:30 Freq: NEEDED Status: Active Protocol: Document 09/01/23 16:15 AB (Rec: 09/01/23 17:42 AB [id number]) Physical Therapy Current Condition Current Condition Evaluation Date 09/01/23 Treatment Diagnosis s/p L VERONICA anterior; difficulty in walking Onset Date 09/01/23 M3 PT-IP Subjective Start: 09/01/23 17:30 Freq: NEEDED Status: Active Protocol: Document 09/01/23 16:15 AB (Rec: 09/01/23 17:42 AB [id number]) Subjective Physical Therapy Visit Type Type Initial Evaluation Visit Start Time 16:15 Visit Stop Time 17:00 Number of KEY ATTENDANT Visits 0 Physical Therapy Visit Comments Patient Comments agreeable to do PT Therapy Pain Assessment Pain Present Pain Present Denied Pain M4 PT-IP Mobility and Gait Start: 09/01/23 17:30 Freq: NEEDED Status: Active Protocol: Document 09/01/23 16:15 AB (Rec: 09/01/23 17:42 AB [id number]) PT-Bed Mobility Assessment Rolling Type of Rolling Log Rolling Level of Assist Maximal Assistance Supine to Sit Supine to Sit Maximum Assistance,1 Person Assistance,Bedrails Sit to Supine Sit to Supine Maximum Assistance,1 Person Assistance,Bedrails PT-Transfer Assessment Sit to and From Stand Sit to and from Stand Maximum Assistance,1 Person Assistance,Use of Upper Extremities Equipment Transfer Assistive Device Gait Belt,Front Wheeled Walker Orthotic/Prosthetic Devices or Brace: No Comments Mobility Comments pt supine in bed and agreeable to do PT. obtained PLOF and home set up from pt. Pt stated that she plans to go to SNF and ortho MD is aware. post-op folder provided and reviewed contents with pt. educated pt regarding L hip anterior precautions. pt needing cues to recall. BP in supine: 99/51. O2 sat RA: 94- 96% AR: 86. pt completed supine to sit max A and cues. pt stated that she usually does a log roll bed mobility due to back issues. pt able to sit on EOB SBA. no c/o dizziness. BP: 123/53. O2 sat : 96% at RA. pt completed sit to stand max A and cues. completed marching in place x 2 reps max A and max cues with slight L knee buckling. pt stated that she has L knee problem and is next to have sx . pt sat on EOB. agreed to get up again and completed sit to stand max A and max cues. able to take side steps towards HOB using FWW max A and max cues. required assist to stabilize LLE and cues for quads activation. pt sat on EOB. completed sit to supine max A and max cues. positioned pt in bed. call light and table placed within reach. Gait Assessment Comments Gait Comments able to take side steps towards HOB using FWW max A PT-Balance Assessment Sitting Balance and Reactions Static Sitting Balance Ability Good Dynamic Sitting Balance Ability Good Standing Balance and Reactions Static Standing Balance Ability Poor Dynamic Standing Balance Ability Poor Device Used FWW M5 PT-IP Objective Assessments Start: 09/01/23 17:30 Freq: NEEDED Status: Active Protocol: Document 09/01/23 16:15 AB (Rec: 09/01/23 17:42 AB [id number]) Orientation Orientation/Cognition Level of Alertness Alert Orientation Name,Place,Situation Language Function Ability No Deficits Noted Safety Awareness Decreased Safety Awareness Memory Description Short Term Impaired Gross Range of Motion Lower Extremity ROM Assessment Left Impaired Impairments L knee flexion contracture: ~ 20 deg Strength Lower Extremity Strength Assessment Left Impaired Hip 2+/5 Knee 3+/5 Sensation Assessment Sensation Gross Sensation WNL Muscle Tone Muscle Tone WNL Yes M6 PT-IP Treatment Start: 09/01/23 17:30 Freq: NEEDED Status: Active Protocol: Document 09/01/23 16:15 AB (Rec: 09/01/23 17:42 AB [id number]) Physical Therapy Treatment Exercises Exercises Heel Slides Education Education Provided Precautions,Weight Bearing Status,Post-Op Packet,Safety M7 PT-IP Assessment and Plan Start: 09/01/23 17:30 Freq: NEEDED Status: Active Protocol: Document 09/01/23 16:15 AB (Rec: 09/01/23 17:42 AB [id number]) PT Summary Assessment and Plan Potential Rehabilitation Potential Fair Status of Condition at Evaluation Evolving Summary Impairments Pain,ROM,Strength,Balance, Coordination,Sensation,Tone, Cognition,Bed Mobility, Transfers,Gait,Activity Tolerance Assessment Summary Pt is an 83 y/o F s/p L VERONICA anterior approach POD 0. pt has L hip anterior precautions and is WBAT. pt requiring max A with all mobilities at this time with use of FWW. pt does not have any assistance at home. pt will require SNF rehab to improve overall functional mobility independence. will continue to assess progress. Goals Bed Mobility Goal Standby Assistance Transfer Goal Standby Assistance,Front Wheeled Walker Gait Goal Standby Assistance,Front Wheel Walker Gait Distance 100 Other Goals improve bed mobility, transfers, ambulation using FWW ~ 200 ft mod I Days to Meet Goals 5 Frequency of Treatment Frequency Of Treatment Twice a Day Treatment Plan Physical Therapy Treatment Plan Bed Mobility Training,Transfer Training,Gait Training, Therapeutic Exercise,Balance Retraining,Post Op Education, Discharge Planning,Hot or Cold Pack,Neuromuscular Re-ed, Coordination Retraining,Manual Therapy Precautions Anterior Hip Precautions No Hip Extension,No Hip External Rotation Weight Bearing Status Weight Bearing Status Weight Bear as Tolerated Allowed Weight Bearing Amount (enter % LLE WBAT or #) (%) Recommendations To Nursing Amount of Assist Needed 1 Person Assist Discharge Recommendations PT Discharge Recommendations SNF Rehab Transportation Needs at Discharge Wheelchair/Cabulance
[2023-09-01] MEDS: OXYCODONE IR 5 MG TABLET PO (19:38)
[2023-09-01] MEDS: ASPIRIN EC 81 MG TABLET PO (20:09)
[2023-09-01] MEDS: ATORVASTATIN 20 MG TABLET PO (20:09)
[2023-09-01] MEDS: DOCUSATE 100 MG CAPSULE PO (20:09)
[2023-09-02] MEDS: CEFAZOLIN 2 GM/100 ML PREMIX 100 ML IV (00:15)
[2023-09-02] MEDS: OXYCODONE IR 5 MG TABLET PO ×5 (00:16→23:27)
[2023-09-02] MEDS: PANTOPRAZOLE DR 20 MG TABLET PO (05:45)
--- NOTE | 2023-09-02 06:45 | PM.PNPO.1 ---
Subjective Subjective Date Patient Seen: 09/02/23 Time Patient Seen: 06:45 Interval history: Lying in bed, comfortable. Worked w/ PT yesterday, but has difficulty w/ mobility at baseline d/t chronic back pain. Would like to go to intermediate prior to discharge home for further rehab. Exam Vital Signs (past 8 hours): Oxygen Delivery Method Room Air Oxygen Flow Rate 0 Narrative Exam Narrative: 4/5 hip flexors, quadriceps, hamstrings, DF, PF, EHL on left. Sensation to light touch intact throughout LLE; calf soft and compressible. Aquacel dressing CDI. [facility] Medical History (Updated 08/25/23 @ 10:09 by Orly Hernandez RN) Arthritis Osteoarthritis Diabetes Incontinence GERD (gastroesophageal reflux disease) Esophageal dilatation HLD (hyperlipidemia) HTN (hypertension) Surgical History (Updated 09/02/23 @ 06:45 by Justnie Blanc PA-C) History of total right hip replacement (04/30/23) Hx of appendectomy Hx of bilateral cataract extraction Social History household members: none Smoking Status: Former smoker alcohol intake: current Assessment & Plan Post-op Assessment and plan (1) S/P total hip arthroplasty: Assessment and Plan narrative: 1) SNF for rehab prior to homegoing d/t limited mobilization at baseline. She has chronic backpain and has required a walker for ambulation for the past 5 years. 2) Continue PT while inpt. WBAT, anterior hip precautions. 3) ASA 81 mg BID x 6 weeks for VTE prophylaxis. Postoperative Procedures: Procedures Operation Date: 09/01/23 07:45 Actual Procedure Side Surgeon p Total Hip Arthroplasty/Anterior Approach Left Betty Badillo MD Postoperative day: 1 Quality VTE Deep Vein Thrombosis/Pulmonary Embolism Present on Admission: No
[2023-09-02] MEDS: ACETAMINOPHEN 325 MG TABLET 650 MG PO ×3 (08:06→23:28)
[2023-09-02] MEDS: IBUPROFEN 400 MG TABLET PO ×3 (08:07→21:23)
[2023-09-02] MEDS: DOCUSATE 100 MG CAPSULE PO ×2 (08:08→21:17)
[2023-09-02] MEDS: ASPIRIN EC 81 MG TABLET PO ×2 (08:08→21:17)
[2023-09-02] MEDS: METFORMIN HCL 500 MG TABLET PO ×2 (08:08→16:23)
[2023-09-02 08:38] VITALS: BP 91/49; PULSE 81
[2023-09-02 09:02] VITALS: BP 91/49; PULSE 81; RESP 16; TEMP 36.6; O2SAT 94
--- NOTE | 2023-09-02 09:27 | OT.IP.EVAL ---
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) Hx of appendectomy Hx of bilateral cataract extraction Occupational Therapy Inpatient Evaluation/Re-Eval M1 PT/OT-IP Prior Functional Status Start: 09/01/23 17:30 Freq: NEEDED Status: Active Protocol: Document 09/02/23 09:30 [facility] (Rec: 09/02/23 09:47 [facility] [id number]) Medical Review Prior Functional Status Medical History Reviewed Yes Communication able to make needs known Mobility and Gait pt stated that she was modified independent with all mobilities and ambulation using a 4WW Activities of Daily Living and IADL's Pt states uses LB dressing equipment for ADL needs. Social History Household Members none Living Arrangements House Number of Floors (Floors) One Floor Number of Stairs To Enter/Railing? ramp to enter Home Environment Standard Height Toilet,Walk in Shower,Built-In Shower Seat, Ramp Home Equipment Front Wheel Walker,Four Wheel Walker,Bedside Commode,Raised Toilet Seat Without Armrests, Shower Seat with Backrest,Hand Held Shower,Information Systems Planner,Sock Aid, Grab Bars In Shower Additional Social History Comment Pt's surgeon has agreed that pt to go skilled rehab prior to going home. M2 OT-IP Current Condition Start: 09/02/23 09:29 Freq: Status: Active Protocol: Document 09/02/23 09:30 [facility] (Rec: 09/02/23 09:47 [facility] [id number]) Occupational Therapy Current Condition Current Condition Evaluation Date 09/02/23 Treatment Diagnosis S/P L VERONICA Anterior approach Diagnosis Onset Date 09/01/23 Post Operative Precautions Anterior Hip Precautions No Hip Extension,No Hip External Rotation Weight Bearing Status Weight Bearing Status Weight Bear as Tolerated M3 OT- IP Subjective and Pain Start: 09/02/23 09:29 Freq: Status: Active Protocol: Document 09/02/23 09:30 [facility] (Rec: 09/02/23 09:47 [facility] [id number]) OT- Subjective Occupational Therapy Visit Type Type Initial Evaluation Visit Start Time 08:55 Visit Stop Time 09:27 Occupational Therapy Visit Comments Patient Comments Pt agreed to get up. Patient/Caregiver Goals To go to skilled rehab. OT Pain Assessment Pain When Pain Assessed At Rest Pain Present Pain Present Pain Reported Location Lower Back Intensity 8 Scale Used Numeric (0 - 10) M4 OT- IP ADL's Start: 09/02/23 09:29 Freq: Status: Active Protocol: Document 09/02/23 09:30 [facility] (Rec: 09/02/23 09:47 [facility] [id number]) OT MON-Lskp-Gmcesdf General Evaluation Self-Feeding Ability Independent OT ADL-Grooming Comments OT Grooming Comments Pt refused at this time. OT ADL-Oral Care Comments Oral Care Comments Pt refused at this time. OT ADL-Dressing General Eval Lower Body Dressing Ability Maximum Assistance Areas Needing Assistance Socks OT ADL-Toileting Comments OT Toileting Comments Pt use of Purewick at this time. Pt states at home has to use the toilet every 2 hours at night. Continued to suggested that pt use her BSC at home. Educated for pt to be mindful of her LLE positioning during all ADL needs. OT ADL-Bathing Comments OT Bathing Comments Not performed. M5 OT- IP IADL's Start: 09/02/23 09:29 Freq: Status: Active Protocol: Document 09/02/23 09:30 [facility] (Rec: 09/02/23 09:47 [facility] [id number]) OT-Instrumental Activities of Daily Living Deficits IADL Deficits Identified Deficits Home Safety Awareness Awareness of Need for Assistance at Home Good Awareness Ability to Problem Solve Emergency Able to Problem Solve Situations Home Safety Comments Due to decreased mobility , pt will need assist for most ADl and IADL needs at this time. Medication Management Medication Management Comments Pt states does at home. However pt admits to not checking her blood pressures or sugars at home. Money Management Money Management Comments Pt will benefit from assist. Meal Preparation Meal Preparation Comments Pt will need assist. Shell Reprint Operator Shell Reprint Operator Comments Pt will need assist. M6 OT- IP Functional Cognition Start: 09/02/23 09:29 Freq: Status: Active Protocol: Document 09/02/23 09:30 [facility] (Rec: 09/02/23 09:47 [facility] [id number]) Cognitive Factors Limiting Selfcare Function Cognitive Ability Level of Alertness Alert Patient Orientation Name,Age,Place,Situation Attention Span Ability Capable of Focused Attention, Capable of Sustained Attention Ability to Follow Commands Able to Follow One Step Commands Cognitive Comments Cognitive Assessment Comments Pt able to states her precautions and able to follow given vc for bed mobility and transfer to the recliner. OT- Vision and Hearing OT- Vision Assessment Visual Acuity Glasses For Reading Visual Attentiveness WFL Occular Pursuits WFL M7 OT- IP Mobility and Balance Start: 09/02/23 09:29 Freq: Status: Active Protocol: Document 09/02/23 09:30 [facility] (Rec: 09/02/23 09:47 [facility] [id number]) OT- Bed Mobility Assessment Supine to Sit Supine to Sit Assist Maximum Assistance,Head of Bed Elevated OT-Transfer Assessment Sit to and From Stand Sit to and from Stand Maximum Assistance,1 Person Assistance Transfers Transfer Ability Maximum Assistance,1 Person Assistance Technique Transfer Destination Bed,Chair Transfer Technique Stand Step Pivot Devices Transfer Assistive Devices Gait Belt,Front Wheeled Walker Comments Mobility Comments Assist to move her LLE to the edge of the bed and assist to help get her trunk upright with HOB up. MAX AX 1 to come to stand to the FWW. MAX A x1 to move the FWW, assist with balance, and assist with LLE management from buckling as LLE very weak and needs cues to tighten her quads. BP supine 84/42, sitting 105/ 48, and after transfer to the recliner 96/47- pt not symptomatic. While resting in the bed initially pt's LLE tends to roll out a little and educated to place a folded towel under her hip to keep from rolling into external rotation . At this time best for nursing staff to use two person assist for transfers for safety, nursing informed. OT- Balance Assessment Sitting Balance and Reactions Static Sitting Balance Ability Good Dynamic Sitting Balance Ability Fair Standing Balance and Reactions Static Standing Balance Ability Poor Dynamic Standing Balance Ability Poor M8 OT- IP Objective Assessments Start: 09/02/23 09:29 Freq: Status: Active Protocol: Document 09/02/23 09:30 [facility] (Rec: 09/02/23 09:47 [facility] [id number]) OT Gross Range of Motion Upper Extremity Range of Motion Assessment Right Impaired OT Strength Upper Extremity Strength Assessment Right Impaired M9 OT- IP Assessment and Plan Start: 09/02/23 09:29 Freq: Status: Active Protocol: Document 09/02/23 09:30 [facility] (Rec: 09/02/23 09:47 [facility] [id number]) OT Summary Assessment and Plan Potential Rehabilitation Potential Good Analytic Complexity at Evaluation Low Summary OT Impairments Pain,Range of Motion,Strength, Balance,Functional Mobility, Grooming,Dressing,Toileting, Bathing,Toilet Transfers, Shower Transfers,Activity Tolerance Progress Towards Goals Slow Progress due to Pain,Slow Progress due to Activity Tolerance Assessment Summary Pt low complexity and main barriers are pain, decreased strength, balance and activity tolerance and now needing extensive assist for ADL and mobility needs. Pt will benefit from skilled rehab to work on use of adaptive equipment for needs, and increase overall strengthening and endurance so to be able to go home. Pt's ortho surgeon is aware of pt's plan to go to skilled rehab. Goals Grooming Goal Independent Dressing Goal Independent,Information Systems Planner,Sock Aid Toileting Goal Independent Bathing Goal Standby Assistance Toilet Transfer Goal Independent Shower Transfer Goal Standby Assistance Days to Meet Goals 20 Frequency of Treatment Frequency Of Treatment Once a Day Treatment Plan OT Treatment Plan ADL Training,Functional Mobility,Patient/Family Education,Discharge Planning Other Treatment Recommendations and Next Transfer to [facility] with MODA X 1. Treatment Focus Discharge Recommendations OT Discharge Recommendations SNF Rehab Transportation Needs at Discharge Wheelchair/Cabulance
[2023-09-02 10:44] VITALS: PULSE 84; RESP 16; O2SAT 96
--- NOTE | 2023-09-02 11:10 | PT.IPTN ---
Current Diagnoses Unilateral primary osteoarthritis, left hip (09/01/23) Presence of unspecified artificial hip joint (09/01/23) Surgery Performed Operation Date: 09/01/23 07:45 Actual Procedures p Total Hip Arthroplasty/Anterior Approach(Left) - Betty Badillo MD Physical Therapy Treatment Note M2 PT-IP Current Condition Start: 09/01/23 17:30 Freq: NEEDED Status: Active Protocol: Document 09/01/23 16:15 AB (Rec: 09/01/23 17:42 AB [id number]) Physical Therapy Current Condition Current Condition Evaluation Date 09/01/23 Treatment Diagnosis s/p L VERONICA anterior; difficulty in walking Onset Date 09/01/23 M3 PT-IP Subjective Start: 09/01/23 17:30 Freq: NEEDED Status: Active Protocol: Document 09/02/23 11:10 AB (Rec: 09/02/23 12:16 AB [id number]) Subjective Physical Therapy Visit Type Type Treatment Note Visit Start Time 11:10 Visit Stop Time 11:45 Number of INDUSTRIAL METHODS CONSULTANT Visits 0 Physical Therapy Visit Comments Patient Comments agreeable to do PT Therapy Pain Assessment Pain When Pain Assessed At Rest Pain Present Pain Present Pain Reported Location Left Hip Intensity 3 Scale Used Numeric (0 - 10) Pain Management Techniques Distraction,Modification of Treatment,Re-positioning, Timing of Activity with Medications Lower Back Intensity 4 Scale Used Numeric (0 - 10) Pain Management Techniques Distraction,Modification of Treatment,Re-positioning, Timing of Activity with Medications M4 PT-IP Mobility and Gait Start: 09/01/23 17:30 Freq: NEEDED Status: Active Protocol: Document 09/02/23 11:10 AB (Rec: 09/02/23 12:16 AB [id number]) PT-Transfer Assessment Sit to and From Stand Sit to and from Stand Contact Guard Assistance, Minimal Assistance,Maximum Assistance,1 Person Assistance ,Use of Upper Extremities Equipment Transfer Assistive Device Gait Belt,Front Wheeled Walker Orthotic/Prosthetic Devices or Brace: No Comments Mobility Comments pt just transferring back to the chair with nurses after use of bedside commode. PT took over pt's care afterwards . pt sat on the chair. BP checked: 105/50. reviewed anterior hip precautions with pt and pt was able to recall. pt completed sit to stand max A and max cues. pt tends to rock and rely on UE heavily to get up. pt ambulated in room using FWW ~ 8 ft min to mod A and max cues and with chair follow. pt presents with a NBOS, dragging gait on LLE and with stooped posture. pt stated that she cannot stand up straight due to back pain. pt sat back on chair. educated pt on sit<>stand techniques and completed x 6 reps initially requiring min A but was able to complete CGA towards the end. pt sat back on chair and stated that she is tired and wanted to rest. positioned pt on the chair. call light and table placed within reach. Gait Assessment Gait Gait Assistance Required: Minimum Assistance,Moderate Assistance,1 Person Assist Distance (Feet) 8 Able to Maintain Weight Bearing Status Yes During Gait Assistive Devices Assistive Device Gait Belt,Front Wheeled Walker Orthotic/Prosthetic Devices or Brace: No Gait Deviations General Gait Pattern Antalgic,Decreased Feet Clearance,Step-to Gait Factors Limiting Gait Function Factors Limiting Gait Function Decreased Activity Tolerance, Decreased Strength,Difficulty Following Directions,Limited Range of Motion,Poor Safety Awareness M5 PT-IP Objective Assessments Start: 09/01/23 17:30 Freq: NEEDED Status: Active Protocol: Document 09/01/23 16:15 AB (Rec: 09/01/23 17:42 AB [id number]) Orientation Orientation/Cognition Level of Alertness Alert Orientation Name,Place,Situation Language Function Ability No Deficits Noted Safety Awareness Decreased Safety Awareness Memory Description Short Term Impaired Gross Range of Motion Lower Extremity ROM Assessment Left Impaired Impairments L knee flexion contracture: ~ 20 deg Strength Lower Extremity Strength Assessment Left Impaired Hip 2+/5 Knee 3+/5 Sensation Assessment Sensation Gross Sensation WNL Muscle Tone Muscle Tone WNL Yes M6 PT-IP Treatment Start: 09/01/23 17:30 Freq: NEEDED Status: Active Protocol: Document 09/02/23 11:10 AB (Rec: 09/02/23 12:16 AB [id number]) Physical Therapy Treatment Education Education Provided Precautions,Safety M7 PT-IP Assessment and Plan Start: 09/01/23 17:30 Freq: NEEDED Status: Active Protocol: Document 09/02/23 11:10 AB (Rec: 09/02/23 12:16 AB [id number]) PT Summary Assessment and Plan Potential Rehabilitation Potential Fair Summary Impairments Pain,ROM,Strength,Balance, Coordination,Sensation,Tone, Cognition,Bed Mobility, Transfers,Gait,Activity Tolerance Progress Towards Goals Slow Progress due to Medical Issues,Slow Progress due to Activity Tolerance Assessment Summary pt is improving slowly with mobility and was able to ambulate today using a FWW ~ 8 ft. pt needs to be more independent than current mobility level and will benefit from SNF rehab. will continue to assess progress. Goals Bed Mobility Goal Standby Assistance Transfer Goal Standby Assistance,Front Wheeled Walker Gait Goal Standby Assistance,Front Wheel Walker Gait Distance 100 Other Goals improve bed mobility, transfers, ambulation using FWW ~ 200 ft mod I Days to Meet Goals 5 Frequency of Treatment Frequency Of Treatment Twice a Day Treatment Plan Physical Therapy Treatment Plan Bed Mobility Training,Transfer Training,Gait Training, Therapeutic Exercise,Balance Retraining,Post Op Education, Discharge Planning,Hot or Cold Pack,Neuromuscular Re-ed, Coordination Retraining,Manual Therapy Precautions Anterior Hip Precautions No Hip Extension,No Hip External Rotation Weight Bearing Status Weight Bearing Status Weight Bear as Tolerated Allowed Weight Bearing Amount (enter % LLE WBAT or #) (%) Recommendations To Nursing Amount of Assist Needed 1 Person Assist Discharge Recommendations PT Discharge Recommendations SNF Rehab Transportation Needs at Discharge Wheelchair/Cabulance
--- NOTE | 2023-09-02 12:18 | CM.DANOTE ---
Addendum entered by DEEPIKA Madden 09/02/23 16:14: PASRR completed, behind facesheet. SL Addendum entered by Kassy Louie, DEEPIKA 09/02/23 15:51: From Xiomy at [facility], able to accept pt. Anticipate Thursday. Xiomy asked for updated clinicals and Thursday. Xiomy reports needing neg COVID test Thursday. BEAUTY SALES CONSULTANT met with pt in room. Provided print out of SNF name, address, and phone number. Pt reports she has a few different family members that could transport her and that she will work on the transport plan today and report to BEAUTY SALES CONSULTANT tomorrow. P: anticipate SNF placement Sunday 09/03 to [facility] in [place]. Transport plan pending, confirm with Pt tomorrow. PASRR needed. CM team will continue to follow clsoely. LAMONTE Original Note: DCP Assessment note Pt is a 83yo F here following planned left hip surg with Dr. Badillo on 08/31/23. Pt was pre-authorized under INPT status with Medicare. PCP Leydi Guaman Payer Medicare and [employer] BEAUTY SALES CONSULTANT reviewed EMR. Per ortho team/chart review, ortho team anticipates pt needing SNF rehab prior to returning home. PT/OT rec SNF at this time. Per RN report, pt reporting back and hip pain today. Pt BP has been low. BEAUTY SALES CONSULTANT met with pt in room and introduced self and role. Pt confirms wanting SNF prior to returning home. Pt lives alone in [place] but is hopeful for rehab closer to family in [facility]. Pt and this BEAUTY SALES CONSULTANT utilized tablet to review SNF options, pt reports preference is [facility] in [place] or [facility] in [place]. BEAUTY SALES CONSULTANT reviewed Medicare SNF benefit, and that her 3rd midnight would have her dc Thursday. Pt reports verbal understanding. Pt reports that she has family that could transport her Thursday and is working on arranging a ride now. BEAUTY SALES CONSULTANT spoke with Xiomy from [facility]. (p [phone], f [phone]). Report bed availability and agreed to review. Report they do no provide transport. GLORIA Zambrano kindly agreed to fax referral information. Acceptance pending. PASRR needed. Plan: anticipate SNF placement Thursday09/04/23 if medically stable, [facility] Reviewing. family to provide transport in [place], confirm transport with pt. CM team will continue to follow closely. DEEPIKA Madden Discharge Planning/Care Management CM Discharge Assessment Start: 09/02/23 12:15 Freq: Status: Active Protocol: Document 09/02/23 12:15 SL (Rec: 09/02/23 12:18 SL [id number]) Discharge Planning Assessment Assigned Clay Thrower DEEPIKA Ibrahim DPOA/Assigned Designee Name sister Alvarado Contact Information [phone] Advance Directives? No History Provided By Patient,Medical Record Prior Living Arrangements House Household Members none Independent with ADL's Yes Is patient alert and oriented? Yes DME Already Rented / Owned Bath Bench,FWW / Walker, Bedside Commode,Other Patient/Family Preference Custodial Facility Comment Preference is closer to family in [facility]. Preference is [facility]. Discharge Plan Custodial Facility Transportation Arrangement Family Referrals Initiated Custodial Additional Comment Rosita from [facility] reviewing If patient plan is SNF: Has PASSR been No completed? Comment pt pre-auth'ed with Medicare for surgery. Medicare Choice List Provided Yes Medicare choice list reviewed on patient electronic tablet with SNF/HH Preference [facility] Has Agency SNF been contacted Yes Comment Xiomy in admissions reviewing acceptance pending Whiteboard Updated in Patient Room with Yes name and ext. # of Clay Thrower Review Status In Process Please Provide Date Initial DC 09/02/23 Assessment Was Performed Next Review Type Continued Stay Review Pre-Anesthesia Assessment Start: 08/25/23 09:33 Freq: Status: Active Protocol: Document 08/25/23 09:33 CAB (Rec: 08/25/23 10:17 CAB [id number]) Pre-Anesthesia Assessment Patient Information Reviewed Via Phone Assessment Assessment Completed With Patient Comment Labs done per pt, not here @ time of assess Primary Care Provider Isa Eller Seen Specialist in Last 12 Months Yes Specialist Seen Orthopedist Primary Language Chadian Preferred Language Chadian Pairer Inspector Required No Height 152.4 cm Weight 65.317 kg Body Mass Index (BMI) 28.1 Hearing Ability Normal Visual Assist Glasses Dentition Type Full- Upper & Lower Barriers to Learning None Hx Anesthesia Reactions Yes: I wake up sooner than I should I think Hx Family Anesthesia Reaction No Hx Malignant Hyperthermia No Hx Blood Transfusions No Anesthesia Review Requested No Parking Meter Installer No alcohol intake current alcohol intake frequency holidays/special occasions only Smoking Status Former smoker Tobacco type cigarettes how long ago did patient quit smoking 1984 Substance Use Type does not use Pain Present Pain Reported Musculoskeletal Symptoms Abnormal Gait,Difficulty Walking,Joint Pain History of Falling (Recent or History of Yes ) Patient is completely paralyzed or No completely immobile Prosthesis or Orthotic Device Front Wheel Walker Mental Status Oriented to own ability Is patient on oxygen? No Does patient have WORKMAN/SOB No Hx Sleep Apnea No Currently Taking a Beta Eran No Hx Chest Pain No Hx SOB No Hx Syncope or Dizziness No Anti-Coagulant Therapy No Has a Duck Farmer No Cardiac Testing No Hx Pacemaker/ICD No Pacemaker Rep Required? No Cardiac Clearance Received No Diet Type At Home Regular Dysphagia No Gastrointestinal Symptoms Reflux Bladder Pattern Incontinent Urinary Catheter Present No Hx Urinary Self Catheterization No Diabetes Yes: Pt does not check blood sugars at home HgbA1C 5.8 Date 02/10/23 Patient No Lactating No Hx Drug Resistant Organism No Presence of External or Internal Medical Yes: Sonny eye IOLs, right hip Devices prosthesis Received a COVID vaccine? Yes Received all doses? Yes Marital Status / Lives With none Current Living Arrangements House Number of Floors (Floors) One Floor Support System None Does the Patient Have Assistance After No Surgery Patient Discharge Plan Description Other Comment Pt advised 3 day length of stay then to SNF per surgeon Feels Safe in Current Environment Yes Been Physically Hurt or Threatened By a No Person in Current Environment Do you have thoughts of harming yourself None or others? Are you currently considering suicide? No Do you have a plan to hurt yourself or No Plan others? Do You Have Any Spiritual Beliefs That No May Affect Your HC Choices? Do You Have Any Cultural Practices That No May Affect Your HC Choices? Comment Crescencio Who Can We Speak to About Patient's Care Family, friends Identifying Code for Release of Patient Declines to issue Information Health Care Proxy/Next of Kin Cassie (sister) Health Care Proxy Emergency Contact Name Cassie (sister) Emergency Contact Advance Directives? No Power of Manager Zone No PAC Instructions Do not shave/clip surgical site,Durable medical equipment ,Medications to take/avoid, Nasal antibiotic,No ETOH/ petroleum product on skin DOS, NPO,Pre-surgical wash,Sensory aids,Sturdy shoes/comfortable clothes,Do not bring valuables and remove jewelry
--- NOTE | 2023-09-02 13:31 | PT.IPTN ---
Current Diagnoses Unilateral primary osteoarthritis, left hip (09/01/23) Presence of unspecified artificial hip joint (09/01/23) Surgery Performed Operation Date: 09/01/23 07:45 Actual Procedures p Total Hip Arthroplasty/Anterior Approach(Left) - Betty Badillo MD Physical Therapy Treatment Note M2 PT-IP Current Condition Start: 09/01/23 17:30 Freq: NEEDED Status: Active Protocol: Document 09/01/23 16:15 AB (Rec: 09/01/23 17:42 AB [id number]) Physical Therapy Current Condition Current Condition Evaluation Date 09/01/23 Treatment Diagnosis s/p L VERONICA anterior; difficulty in walking Onset Date 09/01/23 M3 PT-IP Subjective Start: 09/01/23 17:30 Freq: NEEDED Status: Active Protocol: Document 09/02/23 13:53 TS (Rec: 09/02/23 14:06 TS [id number]) Subjective Physical Therapy Visit Type Type Treatment Note Visit Start Time 13:31 Visit Stop Time 13:54 Number of TAR KETTLE RUNNER Visits 1 Physical Therapy Visit Comments Patient Comments Pt found resting in chair, would like to get back to bed, pt is agreeable to PT. Therapy Pain Assessment Pain When Pain Assessed At Rest Pain Present Pain Present Pain Reported M4 PT-IP Mobility and Gait Start: 09/01/23 17:30 Freq: NEEDED Status: Active Protocol: Document 09/02/23 13:53 TS (Rec: 09/02/23 14:06 TS [id number]) PT-Bed Mobility Assessment Sit to Supine Sit to Supine Moderate Assistance,1 Person Assistance,Bedrails PT-Transfer Assessment Sit to and From Stand Sit to and from Stand Minimal Assistance,1 Person Assistance,Use of Upper Extremities Equipment Transfer Assistive Device Gait Belt,Front Wheeled Walker Orthotic/Prosthetic Devices or Brace: No Comments Mobility Comments STS from chair with FWW Zane with with cues for BUE support pushing from arms of chair. She ambulated ~5'Zane with FWW , pt reports feeling fatigued and requested back to bed. She sidestepped to HOB x5 with cues and Zane. Sit to supine into bed ModA for LE's. She performed glute sets, quad sets, heel slides and ankle pumps x5. Pt was left in bed, all needs met. Gait Assessment Gait Gait Assistance Required: Minimum Assistance,1 Person Assist Distance (Feet) 5 Able to Maintain Weight Bearing Status Yes During Gait Assistive Devices Assistive Device Gait Belt,Front Wheeled Walker Orthotic/Prosthetic Devices or Brace: No Gait Deviations General Gait Pattern Antalgic,Decreased Feet Clearance,Step-to Gait Factors Limiting Gait Function Factors Limiting Gait Function Decreased Activity Tolerance, Decreased Strength,Difficulty Following Directions,Limited Range of Motion,Poor Safety Awareness Comments Gait Comments See mobility comments PT-Balance Assessment Sitting Balance and Reactions Static Sitting Balance Ability Good Dynamic Sitting Balance Ability Fair Standing Balance and Reactions Static Standing Balance Ability Fair Dynamic Standing Balance Ability Poor Device Used FWW M5 PT-IP Objective Assessments Start: 09/01/23 17:30 Freq: NEEDED Status: Active Protocol: Document 09/01/23 16:15 AB (Rec: 09/01/23 17:42 AB [id number]) Orientation Orientation/Cognition Level of Alertness Alert Orientation Name,Place,Situation Language Function Ability No Deficits Noted Safety Awareness Decreased Safety Awareness Memory Description Short Term Impaired Gross Range of Motion Lower Extremity ROM Assessment Left Impaired Impairments L knee flexion contracture: ~ 20 deg Strength Lower Extremity Strength Assessment Left Impaired Hip 2+/5 Knee 3+/5 Sensation Assessment Sensation Gross Sensation WNL Muscle Tone Muscle Tone WNL Yes M6 PT-IP Treatment Start: 09/01/23 17:30 Freq: NEEDED Status: Active Protocol: Document 09/02/23 13:53 TS (Rec: 09/02/23 14:06 [id number]) Physical Therapy Treatment Exercises Exercises Ankle Pumps,Gluteal Sets,Quad Sets,Heel Slides Education Education Provided Precautions,Safety M7 PT-IP Assessment and Plan Start: 09/01/23 17:30 Freq: NEEDED Status: Active Protocol: Document 09/02/23 13:53 TS (Rec: 09/02/23 14:06 [id number]) PT Summary Assessment and Plan Potential Rehabilitation Potential Fair Summary Impairments Pain,ROM,Strength,Balance, Coordination,Sensation,Tone, Cognition,Bed Mobility, Transfers,Gait,Activity Tolerance Progress Towards Goals Slow Progress due to Medical Issues,Slow Progress due to Activity Tolerance Assessment Summary Lupe continues to make slow progress with her mobility. She is Zane for STS from chair with max cues for sequencing. She ambulated ~5' CGA with FWW, she quickly fatigued and requested back to bed. She performed ankle pumps, quad sets, glute sets and heel slides. PT continues to recommend SNF rehab. Goals Bed Mobility Goal Standby Assistance Transfer Goal Standby Assistance,Front Wheeled Walker Gait Goal Standby Assistance,Front Wheel Walker Gait Distance 100 Other Goals improve bed mobility, transfers, ambulation using FWW ~ 200 ft mod I Days to Meet Goals 5 Frequency of Treatment Frequency Of Treatment Twice a Day Treatment Plan Physical Therapy Treatment Plan Bed Mobility Training,Transfer Training,Gait Training, Therapeutic Exercise,Balance Retraining,Post Op Education, Discharge Planning,Hot or Cold Pack,Neuromuscular Re-ed, Coordination Retraining,Manual Therapy Precautions Anterior Hip Precautions No Hip Extension,No Hip External Rotation Weight Bearing Status Weight Bearing Status Weight Bear as Tolerated Allowed Weight Bearing Amount (enter % LLE WBAT or #) (%) Recommendations To Nursing Amount of Assist Needed 1 Person Assist Discharge Recommendations PT Discharge Recommendations SNF Rehab Transportation Needs at Discharge Wheelchair/Cabulance
[2023-09-02 16:30] VITALS: BP 106/46; PULSE 84
[2023-09-02 19:59] VITALS: BP 91/46; PULSE 77; RESP 18; TEMP 36.1; O2SAT 94
[2023-09-02] MEDS: ATORVASTATIN 20 MG TABLET PO (21:18)
[2023-09-03 02:35] VITALS: BP 107/67
[2023-09-03] MEDS: OXYCODONE IR 5 MG TABLET PO ×4 (02:38→14:37)
[2023-09-03] MEDS: IBUPROFEN 400 MG TABLET PO ×2 (02:38→14:39)
[2023-09-03] MEDS: ACETAMINOPHEN 325 MG TABLET 650 MG PO ×2 (05:21→14:39)
[2023-09-03] MEDS: PANTOPRAZOLE DR 20 MG TABLET PO (05:21)
--- NOTE | 2023-09-03 07:38 | PM.PNPO.1 ---
Subjective Subjective Date Patient Seen: 09/03/23 Time Patient Seen: 07:38 Interval history: Pain is mild. Denies fever or chills. No nausea or vomiting. Exam Vital Signs (past 8 hours): - 09/03/23 02:35 Blood Pressure 107/67 Oxygen Delivery Method Room Air Oxygen Flow Rate 0 Narrative Exam Narrative: 83-year-old female resting comfortably in bed in no apparent distress. Left hip dressing is clean, dry and intact. Motor functions intact bilateral lower extremities. Sensation grossly intact to light touch left lower extremity. 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 for DVT prophylaxis Multimodal pain management Discharge likely will need fdc facility placement prior to going home due to limited mobility at baseline Quality VTE Deep Vein Thrombosis/Pulmonary Embolism Present on Admission: No
[2023-09-03 08:00] VITALS: BP 97/46; PULSE 79; RESP 16; TEMP 35.7; O2SAT 98
[2023-09-03 08:26] LABS: Hematocrit 27.4 % (36-46); Hemoglobin 9.2 g/dL (12.0-16.0)
[2023-09-03] MEDS: METFORMIN HCL 500 MG TABLET PO ×2 (09:15→17:21)
[2023-09-03] MEDS: DOCUSATE 100 MG CAPSULE PO ×2 (09:15→20:27)
[2023-09-03] MEDS: ASPIRIN EC 81 MG TABLET PO ×2 (09:15→20:27)
--- NOTE | 2023-09-03 10:27 | PT.IPTN ---
Current Diagnoses Unilateral primary osteoarthritis, left hip (09/01/23) Presence of unspecified artificial hip joint (09/01/23) Surgery Performed Operation Date: 09/01/23 07:45 Actual Procedures p Total Hip Arthroplasty/Anterior Approach(Left) - Betty Badillo MD Physical Therapy Treatment Note M2 PT-IP Current Condition Start: 09/01/23 17:30 Freq: NEEDED Status: Active Protocol: Document 09/01/23 16:15 AB (Rec: 09/01/23 17:42 AB [id number]) Physical Therapy Current Condition Current Condition Evaluation Date 09/01/23 Treatment Diagnosis s/p L VERONICA anterior; difficulty in walking Onset Date 09/01/23 M3 PT-IP Subjective Start: 09/01/23 17:30 Freq: NEEDED Status: Active Protocol: Document 09/03/23 11:02 TS (Rec: 09/03/23 11:17 TS [id number]) Subjective Physical Therapy Visit Type Type Treatment Note Visit Start Time 10:27 Visit Stop Time 10:51 Number of CHARTER AND TOUR BUS DRIVER Visits 2 Physical Therapy Visit Comments Patient Comments Pt found resting in bed, is agreeable to PT. Therapy Pain Assessment Pain When Pain Assessed At Rest Pain Present Pain Present Pain Reported M4 PT-IP Mobility and Gait Start: 09/01/23 17:30 Freq: NEEDED Status: Active Protocol: Document 09/03/23 11:02 TS (Rec: 09/03/23 11:17 TS [id number]) PT-Bed Mobility Assessment Supine to Sit Supine to Sit Minimal Assistance,1 Person Assistance Scooting Scooting to Edge of Bed Contact Guard Assistance PT-Transfer Assessment Sit to and From Stand Sit to and from Stand Contact Guard Assistance,1 Person Assistance,Use of Upper Extremities Equipment Transfer Assistive Device Gait Belt,Front Wheeled Walker Orthotic/Prosthetic Devices or Brace: No Comments Mobility Comments Prior to mobility pt performed heel slides, ankle pumps and glute sets prior to mobility. Supine to sit with HOB elevated Zane for uprighting trunk with AIRCRAFT STRUCTURAL DESIGN ENGINEER. Pt had some difficulty scooting to EOB, required CGA and cues for handrails. STS from bed with FWW CGA, pt has slouched posture, c/o back pain. She ambulated in room ~15' CGA with FWW, pt has a slow step to gait with some buckling of RLE. Pt sat back in chair, all needs met, RN notified. Gait Assessment Gait Gait Assistance Required: Contact Guard Assist,1 Person Assist Distance (Feet) 15 Able to Maintain Weight Bearing Status Yes During Gait Assistive Devices Assistive Device Gait Belt,Front Wheeled Walker Orthotic/Prosthetic Devices or Brace: No Gait Deviations General Gait Pattern Antalgic,Decreased Feet Clearance,Step-to Gait Factors Limiting Gait Function Factors Limiting Gait Function Decreased Activity Tolerance, Decreased Strength,Difficulty Following Directions,Limited Range of Motion,Poor Safety Awareness Comments Gait Comments See mobility comments PT-Balance Assessment Sitting Balance and Reactions Static Sitting Balance Ability Good Dynamic Sitting Balance Ability Fair Standing Balance and Reactions Static Standing Balance Ability Fair Dynamic Standing Balance Ability Fair Device Used FWW M5 PT-IP Objective Assessments Start: 09/01/23 17:30 Freq: NEEDED Status: Active Protocol: Document 09/01/23 16:15 AB (Rec: 09/01/23 17:42 AB [id number]) Orientation Orientation/Cognition Level of Alertness Alert Orientation Name,Place,Situation Language Function Ability No Deficits Noted Safety Awareness Decreased Safety Awareness Memory Description Short Term Impaired Gross Range of Motion Lower Extremity ROM Assessment Left Impaired Impairments L knee flexion contracture: ~ 20 deg Strength Lower Extremity Strength Assessment Left Impaired Hip 2+/5 Knee 3+/5 Sensation Assessment Sensation Gross Sensation WNL Muscle Tone Muscle Tone WNL Yes M6 PT-IP Treatment Start: 09/01/23 17:30 Freq: NEEDED Status: Active Protocol: Document 09/03/23 11:02 TS (Rec: 09/03/23 11:17 TS [id number]) Physical Therapy Treatment Exercises Exercises Ankle Pumps,Gluteal Sets,Heel Slides Education Education Provided Precautions,Safety M7 PT-IP Assessment and Plan Start: 09/01/23 17:30 Freq: NEEDED Status: Active Protocol: Document 09/03/23 11:02 TS (Rec: 09/03/23 11:17 TS [id number]) PT Summary Assessment and Plan Potential Rehabilitation Potential Fair Summary Impairments Pain,ROM,Strength,Balance, Coordination,Sensation,Tone, Cognition,Bed Mobility, Transfers,Gait,Activity Tolerance Progress Towards Goals Slow Progress due to Medical Issues,Slow Progress due to Activity Tolerance Assessment Summary Lupe continues to make slow progress with her mobility. She requires Zane for bed mobility with max cueing. She performed STS with FWW CGA, has poor posture in standing and c/o back pain. She progressed her gait to ~15 CGA with FWW. Pt continues to have poor tolerance to gait and some buckling of RLE. PT continues to recommend SNF rehab at this time. Goals Bed Mobility Goal Standby Assistance Transfer Goal Standby Assistance,Front Wheeled Walker Gait Goal Standby Assistance,Front Wheel Walker Gait Distance 100 Other Goals improve bed mobility, transfers, ambulation using FWW ~ 200 ft mod I Days to Meet Goals 5 Frequency of Treatment Frequency Of Treatment Twice a Day Treatment Plan Physical Therapy Treatment Plan Bed Mobility Training,Transfer Training,Gait Training, Therapeutic Exercise,Balance Retraining,Post Op Education, Discharge Planning,Hot or Cold Pack,Neuromuscular Re-ed, Coordination Retraining,Manual Therapy Precautions Anterior Hip Precautions No Hip Extension,No Hip External Rotation Weight Bearing Status Weight Bearing Status Weight Bear as Tolerated Allowed Weight Bearing Amount (enter % LLE WBAT or #) (%) Recommendations To Nursing Amount of Assist Needed 1 Person Assist Discharge Recommendations PT Discharge Recommendations SNF Rehab Transportation Needs at Discharge Wheelchair/Cabulance
--- NOTE | 2023-09-03 10:30 | PC.NURSE ---
Addendum entered by Grisel Harrison R.N. 09/03/23 16:58: Patients blood sugar 102, patient is diet controlled and takes oral medication. She states that she does not check her blood sugar at home, and does not want to continuously check it here at the hospital. We did do a check x1 and her blood sugar at 1645 was 102. Patient is comfortable and was given tylenol, ibuprofen, and oxycodone a bit ago. These have been effective for discomfort. Original Note: Assess- Patient is alert and oriented x4, she has an aquacel dressing to her l.hip that is cdi. She complains of 7/8 pain to l.knee and back for her discomfort, oxycodone has been effective for pain control. Working with physical therapy to get up in the chair. [facility] wnl and patients ppx2. She is discharging to SNF tomorrow.
[2023-09-03 13:54] LABS: COVID19 -Nasal RAPID Negative (Negative)
--- NOTE | 2023-09-03 14:26 | PT-IP ANOTE ---
Pt refused to work with PT this afternoon, she would like to rest. PT may check on pt later this afternoon if time is available.
--- NOTE | 2023-09-03 14:45 | OT.IP.TRT ---
Current Diagnoses Unilateral primary osteoarthritis, left hip (09/01/23) Presence of unspecified artificial hip joint (09/01/23) Surgery Performed Operation Date: 09/01/23 07:45 Actual Procedures p Total Hip Arthroplasty/Anterior Approach(Left) - Betty Badillo MD Occupational Therapy Treatment Note M2 OT-IP Current Condition Start: 09/02/23 09:29 Freq: Status: Active Protocol: Document 09/02/23 09:30 [facility] (Rec: 09/02/23 09:47 [facility] [id number]) Occupational Therapy Current Condition Current Condition Evaluation Date 09/02/23 Treatment Diagnosis S/P L VERONICA Anterior approach Diagnosis Onset Date 09/01/23 Post Operative Precautions Anterior Hip Precautions No Hip Extension,No Hip External Rotation Weight Bearing Status Weight Bearing Status Weight Bear as Tolerated M3 OT- IP Subjective and Pain Start: 09/02/23 09:29 Freq: Status: Active Protocol: Document 09/03/23 15:03 [facility] (Rec: 09/03/23 15:11 [facility] [id number]) OT- Subjective Occupational Therapy Visit Type Type Treatment Note Visit Start Time 14:45 Visit Stop Time 15:00 Occupational Therapy Visit Comments Patient Comments Pt wanting to brush her teeth , but her knee hurting too much to get up at this time. Patient/Caregiver Goals To go to skilled rehab. OT Pain Assessment Pain When Pain Assessed At Rest Pain Present Pain Present Pain Reported Location L knee Intensity 8 Scale Used Numeric (0 - 10) M4 OT- IP ADL's Start: 09/02/23 09:29 Freq: Status: Active Protocol: Document 09/03/23 15:03 [facility] (Rec: 09/03/23 15:11 [facility] [id number]) OT ADL-Toileting Comments OT Toileting Comments Able to show and educated pt on toileting needs to be sure not to externally rotate her LLE out during pericare needs. OT ADL-Bathing Comments OT Bathing Comments Not performed , pt had a bed bath yesterday. At this time may be best to use a rolling shower chair. M5 OT- IP IADL's Start: 09/02/23 09:29 Freq: Status: Active Protocol: Document 09/02/23 09:30 [facility] (Rec: 09/02/23 09:47 [facility] [id number]) OT-Instrumental Activities of Daily Living Deficits IADL Deficits Identified Deficits Home Safety Awareness Awareness of Need for Assistance at Home Good Awareness Ability to Problem Solve Emergency Able to Problem Solve Situations Home Safety Comments Due to decreased mobility , pt will need assist for most ADl and IADL needs at this time. Medication Management Medication Management Comments Pt states does at home. However pt admits to not checking her blood pressures or sugars at home. Money Management Money Management Comments Pt will benefit from assist. Meal Preparation Meal Preparation Comments Pt will need assist. Wood Crafter Wood Crafter Comments Pt will need assist. M6 OT- IP Functional Cognition Start: 09/02/23 09:29 Freq: Status: Active Protocol: Document 09/03/23 15:03 [facility] (Rec: 09/03/23 15:11 [facility] [id number]) Cognitive Factors Limiting Selfcare Function Cognitive Ability Level of Alertness Alert Patient Orientation Name,Age,Place,Situation Attention Span Ability Capable of Focused Attention, Capable of Sustained Attention Ability to Follow Commands Able to Follow Multi-Step Commands Cognitive Comments Cognitive Assessment Comments Able to go over various scenarios for ADL's and mobility needs and pt able to states all her precautions and identify what is the best way to move during ADL and mobility needs. M7 OT- IP Mobility and Balance Start: 09/02/23 09:29 Freq: Status: Active Protocol: Document 09/03/23 15:03 [facility] (Rec: 09/03/23 15:11 [facility] [id number]) OT-Transfer Assessment Comments Mobility Comments Pt states her left hip/feet seems to lie in slight external rotation at rest. Educated pt on having a folded towel under her left hip to help prevent external rotation . When able to look at her leg, pt's left lower leg rotated towards external rotation versus her left hip. OT- Balance Assessment Sitting Balance and Reactions Static Sitting Balance Ability Good Dynamic Sitting Balance Ability Fair M8 OT- IP Objective Assessments Start: 09/02/23 09:29 Freq: Status: Active Protocol: Document 09/02/23 09:30 [facility] (Rec: 09/02/23 09:47 [facility] [id number]) OT Gross Range of Motion Upper Extremity Range of Motion Assessment Right Impaired OT Strength Upper Extremity Strength Assessment Right Impaired M9 OT- IP Assessment and Plan Start: 09/02/23 09:29 Freq: Status: Active Protocol: Document 09/03/23 15:03 [facility] (Rec: 09/03/23 15:11 [facility] [id number]) OT Summary Assessment and Plan Potential Rehabilitation Potential Good Analytic Complexity at Evaluation Low Summary OT Impairments Pain,Range of Motion,Strength, Balance,Functional Mobility, Grooming,Dressing,Toileting, Bathing,Toilet Transfers, Shower Transfers,Activity Tolerance Progress Towards Goals Slow Progress due to Pain,Slow Progress due to Activity Tolerance Assessment Summary Pt having more left knee pain versus her hip at this time. Able to go over various scenarios of ADl'd and mobility needs and pt able to states her precautions well and aware of how to best follow them. Pt to go to skilled rehab tomorrow. Able to educated her of car transfers as well. Goals Grooming Goal Independent Dressing Goal Independent,Gasket Notcher,Sock Aid Bathing Goal Standby Assistance Toilet Transfer Goal Independent Shower Transfer Goal Standby Assistance Days to Meet Goals 20 Frequency of Treatment Frequency Of Treatment Once a Day Treatment Plan OT Treatment Plan ADL Training,Functional Mobility,Patient/Family Education,Discharge Planning Other Treatment Recommendations and Next Transfer to [facility] with MODA X 1. Treatment Focus Discharge Recommendations OT Discharge Recommendations [facility] Rehab Transportation Needs at Discharge Private Vehicle,Wheelchair/ Cabulance
--- NOTE | 2023-09-03 15:23 | CM.DPNOTE ---
DCP Cont Reviewed chart. Spoke with Xiomy at [facility] in [place] p [phone], f [phone]; patient accepted for admission tomorrow, asks for the following tomorrow before discharge: Updated clinical from the last 24-48hrs DC Summary Signed med list and schedule II Rx printed Completed COVID Swab PASRR 7 day view of the MAR Nurse to nurse report P [phone] Updated patient who states appreciation. Patient has a friend available to transport between [phone] tomorrow. Updated Tim Baeza with plan. Plan: Discharge anticipated Thursday 6.7.24, to [facility] SNF via friend to transport between [phone]. CM team following closely for coordination. LINA
--- NOTE | 2023-09-03 15:39 | PT.IPTN ---
Current Diagnoses Unilateral primary osteoarthritis, left hip (09/01/23) Presence of unspecified artificial hip joint (09/01/23) Surgery Performed Operation Date: 09/01/23 07:45 Actual Procedures p Total Hip Arthroplasty/Anterior Approach(Left) - Betty Badillo MD Physical Therapy Treatment Note M2 PT-IP Current Condition Start: 09/01/23 17:30 Freq: NEEDED Status: Active Protocol: Document 09/01/23 16:15 AB (Rec: 09/01/23 17:42 AB [id number]) Physical Therapy Current Condition Current Condition Evaluation Date 09/01/23 Treatment Diagnosis s/p L VERONICA anterior; difficulty in walking Onset Date 09/01/23 M3 PT-IP Subjective Start: 09/01/23 17:30 Freq: NEEDED Status: Active Protocol: Document 09/03/23 16:10 TS (Rec: 09/03/23 16:22 TS [id number]) Subjective Physical Therapy Visit Type Type Treatment Note Visit Start Time 15:39 Visit Stop Time 15:54 Number of WAFER POLISHING LEAD WORKER Visits 3 Physical Therapy Visit Comments Patient Comments Pt found in chair, reports pain in L knee, is agreeable to PT. Therapy Pain Assessment Pain When Pain Assessed At Rest Pain Present Pain Present Pain Reported M4 PT-IP Mobility and Gait Start: 09/01/23 17:30 Freq: NEEDED Status: Active Protocol: Document 09/03/23 16:10 TS (Rec: 09/03/23 16:22 TS [id number]) PT-Bed Mobility Assessment Sit to Supine Sit to Supine Moderate Assistance,1 Person Assistance,Bedrails Scooting Scooting to Edge of Bed Contact Guard Assistance PT-Transfer Assessment Sit to and From Stand Sit to and from Stand Minimal Assistance,1 Person Assistance,Use of Upper Extremities Equipment Transfer Assistive Device Gait Belt,Front Wheeled Walker Orthotic/Prosthetic Devices or Brace: No Comments Mobility Comments STS from chair Zane with FWW, pt required cues for pushing from arms of chair. Pt ambulated ~15'CGA with FWW, she has unsteady gait with decreased step length and height. Pt fatigued quickly with gait and requested back to bed. Sit to supine ModA for LE's into bed. Pt repostioned self laterally in bed, required MaxA for scooting to HOB. Pt was left in bed, all needs met. Gait Assessment Gait Gait Assistance Required: Contact Guard Assist,1 Person Assist Distance (Feet) 15 Able to Maintain Weight Bearing Status Yes During Gait Assistive Devices Assistive Device Gait Belt,Front Wheeled Walker Orthotic/Prosthetic Devices or Brace: No Gait Deviations General Gait Pattern Antalgic,Decreased Stride Length,Decreased Feet Clearance,Step-to Gait Factors Limiting Gait Function Factors Limiting Gait Function Decreased Activity Tolerance, Decreased Strength,Limited Range of Motion Comments Gait Comments See mobility comments PT-Balance Assessment Sitting Balance and Reactions Static Sitting Balance Ability Good Dynamic Sitting Balance Ability Fair Standing Balance and Reactions Static Standing Balance Ability Fair Dynamic Standing Balance Ability Fair Device Used FWW M5 PT-IP Objective Assessments Start: 09/01/23 17:30 Freq: NEEDED Status: Active Protocol: Document 09/01/23 16:15 AB (Rec: 09/01/23 17:42 AB [id number]) Orientation Orientation/Cognition Level of Alertness Alert Orientation Name,Place,Situation Language Function Ability No Deficits Noted Safety Awareness Decreased Safety Awareness Memory Description Short Term Impaired Gross Range of Motion Lower Extremity ROM Assessment Left Impaired Impairments L knee flexion contracture: ~ 20 deg Strength Lower Extremity Strength Assessment Left Impaired Hip 2+/5 Knee 3+/5 Sensation Assessment Sensation Gross Sensation WNL Muscle Tone Muscle Tone WNL Yes M6 PT-IP Treatment Start: 09/01/23 17:30 Freq: NEEDED Status: Active Protocol: Document 09/03/23 16:10 TS (Rec: 09/03/23 16:22 TS [id number]) Physical Therapy Treatment Exercises Exercises Ankle Pumps,Gluteal Sets,Heel Slides Education Education Provided Precautions,Safety M7 PT-IP Assessment and Plan Start: 09/01/23 17:30 Freq: NEEDED Status: Active Protocol: Document 09/03/23 16:10 TS (Rec: 09/03/23 16:22 TS [id number]) PT Summary Assessment and Plan Potential Rehabilitation Potential Fair Summary Impairments Pain,ROM,Strength,Balance, Coordination,Sensation,Tone, Cognition,Bed Mobility, Transfers,Gait,Activity Tolerance Progress Towards Goals Slow Progress due to Pain,Slow Progress due to Activity Tolerance Assessment Summary Lupe continues to make slow progress with her mobility. She is Zane for STS from chair with cues for sequencing. She continues to ambulate ~15' in room CGA with FWW. She has a low tolerance for activity. She does demonstrate good awareness of her hip precautions with her mobility. PT continues to recommend SNF rehab at this time. Goals Bed Mobility Goal Standby Assistance Transfer Goal Standby Assistance,Front Wheeled Walker Gait Goal Standby Assistance,Front Wheel Walker Gait Distance 100 Other Goals improve bed mobility, transfers, ambulation using FWW ~ 200 ft mod I Days to Meet Goals 5 Frequency of Treatment Frequency Of Treatment Twice a Day Treatment Plan Physical Therapy Treatment Plan Bed Mobility Training,Transfer Training,Gait Training, Therapeutic Exercise,Balance Retraining,Post Op Education, Discharge Planning,Hot or Cold Pack,Neuromuscular Re-ed, Coordination Retraining,Manual Therapy Precautions Anterior Hip Precautions No Hip Extension,No Hip External Rotation Weight Bearing Status Weight Bearing Status Weight Bear as Tolerated Allowed Weight Bearing Amount (enter % LLE WBAT or #) (%) Recommendations To Nursing Amount of Assist Needed 1 Person Assist Discharge Recommendations PT Discharge Recommendations SNF Rehab Transportation Needs at Discharge Wheelchair/Cabulance
[2023-09-03] MEDS: ATORVASTATIN 20 MG TABLET PO (20:27)
[2023-09-03 20:28] VITALS: BP 112/55; PULSE 82; RESP 15; TEMP 35.9; O2SAT 93
[2023-09-04] MEDS: OXYCODONE IR 5 MG TABLET PO ×3 (00:11→10:52)
[2023-09-04] MEDS: IBUPROFEN 400 MG TABLET PO ×2 (00:12→10:51)
[2023-09-04] MEDS: ACETAMINOPHEN 325 MG TABLET 650 MG PO ×2 (00:12→10:51)
[2023-09-04] MEDS: PANTOPRAZOLE DR 20 MG TABLET PO (05:31)
--- NOTE | 2023-09-04 07:03 | PM.DS.1 ---
History of Present Illness History of Present Illness Date Patient Seen: 09/04/23 Time Patient Seen: 07:03 Chief complaint: INPT Narrative: Operative Date/Time/Diagnoses Date of procedure: 09/01/23 Time of procedure: 08:00 Pre-op diagnosis: Left hip OA Post-op diagnosis: same Procedure & Clinicians Procedure: Left total hip arthroplasty anterior approach Same procedure as scheduled: Yes Indications: The patient has had progressively worsening left hip pain with radiographic changes consistent with arthritis. Non-operative management has failed and the patient has requested total hip replacement. The risks, benefits and alternatives to surgery were discussed with the patient prior to proceeding. Risks discussed included, but were not limited to, failure to relieve pain, leg length discrepancy, dislocation, stiffness, infection, nerve damage, deep venous thrombosis, pulmonary embolism, stroke, coma, heart attack, permanent paralysis and , as well as the potential need for eventual revision of the prosthetic. Surgeon: Betty Badillo Mechanical Oxidizer: Bola Baeza Anesthesia Type: General and Spinal Operative Notes Findings: Severe left hip OA, soft bone, adequate stability Closure Type: primary Specimen(s): none sent Prosthetic devices, grafts, tissues, transplants, or devices: Badillo [employer] Nephew R3 size 48 cup, neutral poly liner,one 6.5 mm screw, size 2 standard polar stem, 32 x -3 cobalt chrome Estimated Blood Loss (mL): 250 Blood products transfused: none Discharge Providers Provider Date of admission: 09/01/23 06:06 Discharge Date: 09/04/23 Primary care physician: Leydi Guaman PA-C Consults: 09/01/23 06:00 Consult to Anesthesiology Routine Comment: Consulting Provider: Anesthesiologist Reason for consultation: Regional block for post operative pain control Has provider been notified: No 09/01/23 11:25 Consult to Discharge Planning Routine Comment: Consult to Occupational Therapy Evaluate & Treat Comment: Physician Instructions: Evaluate and treat Consult to Physical Therapy Evaluate & Treat Comment: Physician Instructions: post op VERONICA protocol Discharge provider: Justine Blanc PA-C Summary Hospital Course Discharge Diagnosis: Left hip osteoarthritis, s/p left total hip arthroplasty Hospital Course: Ms Alejandro's hospital course was remarkable for slow progress w/ PT. She has been using a walker for several years d/t chronic low back pain. She was evaluated by PT throughout her stay and they felt that she needed further rehab at a SNF prior to going home. On the morning of POD# 3, she was ready for discharge. She was eating and voiding without difficulty and her pain was well-controlled with oral medication. Exam Vital Signs (past 8 hours): Oxygen Delivery Method Room Air Oxygen Flow Rate 0 Narrative Exam Narrative: 3/5 strength in hip flexors, quadriceps, hamstrings; 5/5 DF, PF, EHL on left. Sensation to light touch intact throughout LLE, calf soft and compressible. Aquacel dressing CDI. 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 Discharge Plan Discharge Plan Patient Disposition: [facility] Other facility: [facility] Discharge orders & Medications Prescriptions: New aspirin 81 mg Tablet,Delayed Release (Dr/Ec) 81 mg PO BID Qty: 1 0RF Rx Instructions: Take BID x 6 weeks for VTE prophylaxis oxycodone 5 mg Tablet 5 mg PO Q4-6H PRN (Reason: Pain, Moderate (4-6)) Qty: 30 0RF Continued metformin 500 mg Tablet 500 mg PO BID lisinopril 20 mg Tablet 20 mg PO DAILY acetaminophen 500 mg Tablet 500 - 1,500 mg PO DAILY PRN (Reason: Pain) simvastatin 40 mg Tablet 40 mg PO BEDTIME omeprazole 20 mg Capsule,Delayed Release(Dr/Ec) 20 mg PO DAILY hydrochlorothiazide 25 mg Tablet 25 mg PO DAILY Follow up/Referrals: Leydi Guaman PA-C [Primary Care Provider] - Betty Badillo MD [Physician] - As previously scheduled Diet/Activity/Treatments Diet: Diet as Tolerated Activity: Weightbearing as tolerated. Anterior hip precautions. Cold/Heat Therapy: Ice to hip as needed for pain. Skin/Wound/Dressing Care Report to your healthcare provider any signs of infection, such as:: chills, fever, night sweats, unusual drainage and unusual redness Dressing: May shower. Leave dressing in place until follow up in office. No bathing or otherwise soaking incision. Call the office if the dressing becomes saturated inside. [facility] Rehabilitation [facility] Reason for rehabilitation: Post-operative therapy Rehab type: Physical therapy and Occupational therapy Visit Report/Discharge Packet Instructions: DI for Hip Replacement, DI for Prescription Opioid Use Stand Alone Forms: Patient Portal/API, Surgery Discharge Discharge Data Primary Care Provider: Leydi Guaman Quality VTE Deep Vein Thrombosis/Pulmonary Embolism Present on Admission: No
--- NOTE | 2023-09-04 08:53 | PC.NURSE ---
Patients aquacel dressing is cdi, patient is up to chair and eating her breakfast. She denies pain and is resting comfortably. Taking oxycodone for pain and discomfort. This has been working well for patient.
[2023-09-04] MEDS: ASPIRIN EC 81 MG TABLET PO (09:07)
[2023-09-04] MEDS: DOCUSATE 100 MG CAPSULE PO (09:07)
[2023-09-04] MEDS: METFORMIN HCL 500 MG TABLET PO (09:08)
--- NOTE | 2023-09-04 11:05 | PT.IPTN ---
Current Diagnoses Unilateral primary osteoarthritis, left hip (09/01/23) Presence of unspecified artificial hip joint (09/01/23) Surgery Performed Operation Date: 09/01/23 07:45 Actual Procedures p Total Hip Arthroplasty/Anterior Approach(Left) - Betty Badillo MD Physical Therapy Treatment Note M2 PT-IP Current Condition Start: 09/01/23 17:30 Freq: NEEDED Status: Active Protocol: Document 09/01/23 16:15 AB (Rec: 09/01/23 17:42 AB [id number]) Physical Therapy Current Condition Current Condition Evaluation Date 09/01/23 Treatment Diagnosis s/p L VERONICA anterior; difficulty in walking Onset Date 09/01/23 M3 PT-IP Subjective Start: 09/01/23 17:30 Freq: NEEDED Status: Active Protocol: Document 09/04/23 11:30 TS (Rec: 09/04/23 11:43 TS [id number]) Subjective Physical Therapy Visit Type Type Treatment Note Visit Start Time 11:05 Visit Stop Time 11:28 Number of WAX SPECIALIST Visits 4 Physical Therapy Visit Comments Patient Comments Pt found resting in bed, is agreeable to PT. Therapy Pain Assessment Pain When Pain Assessed At Rest Pain Present Pain Present Pain Reported M4 PT-IP Mobility and Gait Start: 09/01/23 17:30 Freq: NEEDED Status: Active Protocol: Document 09/04/23 11:30 TS (Rec: 09/04/23 11:43 TS [id number]) PT-Bed Mobility Assessment Supine to Sit Supine to Sit Moderate Assistance,1 Person Assistance Scooting Scooting to Edge of Bed Minimal Assistance PT-Transfer Assessment Sit to and From Stand Sit to and from Stand Contact Guard Assistance,1 Person Assistance,Use of Upper Extremities Equipment Transfer Assistive Device Gait Belt,Front Wheeled Walker Orthotic/Prosthetic Devices or Brace: No Comments Mobility Comments Supine to sit ModA with HOB elevated, pt required CERTIFIED PHYSICIAN ASSISTANT to upright trunk. She scooted to EOB Zane. STS from bed CGA with FWW, pt has flexed posture. She ambulated ~5' to chair CGA, required cues for stand to sit sequencing. Pt was left sitting in chair, all needs met. Gait Assessment Gait Gait Assistance Required: Contact Guard Assist,1 Person Assist Distance (Feet) 5 Able to Maintain Weight Bearing Status Yes During Gait Assistive Devices Assistive Device Gait Belt,Front Wheeled Walker Orthotic/Prosthetic Devices or Brace: No Gait Deviations General Gait Pattern Antalgic,Decreased Stride Length,Decreased Feet Clearance,Step-to Gait Factors Limiting Gait Function Factors Limiting Gait Function Decreased Activity Tolerance, Decreased Strength,Limited Range of Motion Comments Gait Comments See mobility comments PT-Balance Assessment Sitting Balance and Reactions Static Sitting Balance Ability Good Dynamic Sitting Balance Ability Fair Standing Balance and Reactions Static Standing Balance Ability Fair Dynamic Standing Balance Ability Fair Device Used FWW M5 PT-IP Objective Assessments Start: 09/01/23 17:30 Freq: NEEDED Status: Active Protocol: Document 09/01/23 16:15 AB (Rec: 09/01/23 17:42 AB [id number]) Orientation Orientation/Cognition Level of Alertness Alert Orientation Name,Place,Situation Language Function Ability No Deficits Noted Safety Awareness Decreased Safety Awareness Memory Description Short Term Impaired Gross Range of Motion Lower Extremity ROM Assessment Left Impaired Impairments L knee flexion contracture: ~ 20 deg Strength Lower Extremity Strength Assessment Left Impaired Hip 2+/5 Knee 3+/5 Sensation Assessment Sensation Gross Sensation WNL Muscle Tone Muscle Tone WNL Yes M6 PT-IP Treatment Start: 09/01/23 17:30 Freq: NEEDED Status: Active Protocol: Document 09/04/23 11:30 TS (Rec: 09/04/23 11:43 TS [id number]) Physical Therapy Treatment Education Education Provided Precautions,Safety M7 PT-IP Assessment and Plan Start: 09/01/23 17:30 Freq: NEEDED Status: Active Protocol: Document 09/04/23 11:30 TS (Rec: 09/04/23 11:43 TS [id number]) PT Summary Assessment and Plan Potential Rehabilitation Potential Fair Summary Impairments Pain,ROM,Strength,Balance, Coordination,Sensation,Tone, Cognition,Bed Mobility, Transfers,Gait,Activity Tolerance Progress Towards Goals Slow Progress due to Pain,Slow Progress due to Activity Tolerance Assessment Summary Lupe is making slow progress with her mobility. She requires ModA for supine to sit with HOB elevated and CERTIFIED PHYSICIAN ASSISTANT for uprighting trunk. She continues to ambulate short distances in room, she does not have a high tolerance for activity at this time. PT is recommending SNF rehab. Goals Bed Mobility Goal Standby Assistance Transfer Goal Standby Assistance,Front Wheeled Walker Gait Goal Standby Assistance,Front Wheel Walker Gait Distance 100 Other Goals improve bed mobility, transfers, ambulation using FWW ~ 200 ft mod I Days to Meet Goals 5 Frequency of Treatment Frequency Of Treatment Twice a Day Treatment Plan Physical Therapy Treatment Plan Bed Mobility Training,Transfer Training,Gait Training, Therapeutic Exercise,Balance Retraining,Post Op Education, Discharge Planning,Hot or Cold Pack,Neuromuscular Re-ed, Coordination Retraining,Manual Therapy Precautions Anterior Hip Precautions No Hip Extension,No Hip External Rotation Weight Bearing Status Weight Bearing Status Weight Bear as Tolerated Allowed Weight Bearing Amount (enter % LLE WBAT or #) (%) Recommendations To Nursing Amount of Assist Needed 1 Person Assist Discharge Recommendations PT Discharge Recommendations SNF Rehab Transportation Needs at Discharge Wheelchair/Cabulance
--- NOTE | 2023-09-04 12:34 | PC.NURSE ---
Patient discharged, called facility x2, left a message as they told RN to do. SN[facility] name [facility]. Awaiting call back
--- NOTE | 2023-09-04 12:47 | CM.DPNOTE ---
Addendum entered by DEEPIKA Reyes 09/04/23 15:00: ADD: Spoke with patient's sister Jenny, who lives in [facility]. Updated Jenny that [facility] will ask that family transport patient to/from her outpatient appointments while admitted at [place]. Jenny states understanding and agreement and plans to be patient's transport to appts and home upon discharge from [facility]. Addendum entered by DEEPIKA Reyes 09/04/23 14:46: ADD: Call received from MIGUEL Ortiz at [facility], requesting H+P and any known allergies. Chart review shows no known allergies. Emailed H+P to [email or web address] Original Note: DC Note Patient has been discharged to [facility] in [place]. Transport via pov. Coordinating this discharge with Xiomy at [place] his morning p [phone], f [phone]. Updated that pov transport is still arranged for supervisor opening and picking at [phone] [phone] Xiomy asks for patient's SS# which patient provided and this MARKER MACHINE ATTENDANT relayed. Faxed the following to Xiomy at F [phone]: Updated clinical from the last 24-48hrs (prog notes, therapy notes, MAR since admission, RN notes) DC Summary Signed med list and schedule II Rx printed Completed COVID Swab NOEMÍ Stauffer requests this MARKER MACHINE ATTENDANT alert family that patient will need transportation to all outpatient appointments while admitted at [place]. Plan: Discharge to [facility] via pov. Patient remained aware and agreeable to plan. LINA
== END 2023-09-04 12:10 | DRG 470 ==
PROVIDERS: Physician Assistant Medical; Admitting Provider Orthopaedic Surgery; PCP Physician Assistant; Referring Provider Orthopaedic Surgery; Visit Provider Orthopaedic Surgery
PROC: 0SRB0JA Replacement of Left Hip Joint with Synthetic Substitute, Uncemented, Open Approach (ICD-10-PCS; CPT 27130; principal; 2023-09-01 07:45)
DX: M16.12 Unilateral primary osteoarthritis, left hip (principal); M89.8X8 Other specified disorders of bone, other site; G89.29 Other chronic pain; M54.50 Low back pain, unspecified; E11.9 Type 2 diabetes mellitus without complications; I10 Essential (primary) hypertension; E78.5 Hyperlipidemia, unspecified; K21.9 Gastro-esophageal reflux disease without esophagitis; Z87.891 Personal history of nicotine dependence; Z79.84 Long term (current) use of oral hypoglycemic drugs
CPT/HCPCS: 73502; 73503; 76000; 85014; 85018; 87635; 97110; 97162; 97165; 97530; C1776; C9290; J0171; J0690; J1100; J1170; J2405; J2704; J3010